=== PATIENT | female | born 1950 | race Caucasian/White ===

== ENCOUNTER 2020-08-20 15:33 | Emergency (ER) | payer MEDICARE, OTHER ==
--- NOTE | 2020-08-20 17:05 | EDM.PDOC ---
ED HPI GENERAL MEDICAL PROBLEM - General Chief Complaint: General Stated Complaint: FATIGUE,WEAKNESS,TROUBLE BREATHING Time Seen by Provider: 08/20/20 15:44 Source of Information: Reports: Patient History Limitations: Reports: No Limitations - History of Present Illness INITIAL COMMENTS - FREE TEXT/NARRATIVE: HISTORY AND PHYSICAL: History of present illness: Patient is a 70-year-old female who presents to the emergency room today with concern of possible COVID-19 infection. Patient states that she has had a cough, nausea, fatigue over the past 4 to 5 days. Patient states that her was diagnosed with Covid approximately 2 weeks ago, so she has been self quarantining at another family members house away from her . Patient denies any other symptoms or concerns or any health history. Patient denies fever, chills, chest pain, shortness of breath. Denies headache, neck stiff ness, change in vision, syncope, or near syncope. Denies vomiting, abdominal pain, diarrhea, constipation, or dysuria. Has not noted any blood in urine or stool. Patient has been eating and drinking appropriately. Review of systems: As per history of present illness and below otherwise all systems reviewed and negative. Past medical history: As per history of present illness and as reviewed below otherwise noncontributory. Surgical history: As per history of present illness and as reviewed below otherwise noncontributory. Social history: See social history for further information Family history: As per history of present illness and as reviewed below otherwise no ncontributory. Physical exam: General: Patient is alert, oriented, and in no acute distress. Patient sitting comfortably on exam table. Vitals stable and reviewed by me. 94-95% on RA. HEENT: Atraumatic, normocephalic, pupils equal and reactive bilaterally, negative for conjunctival pallor or scleral icterus, mucous membranes moist, TMs normal bilaterally, throat clear, neck supple, nontender, trachea midline. No drooling or trismus noted. No meningeal signs. No hot potato voice noted. Lungs: Patient speaking clearly without breathlessness, no wheezing or stridor, no accessory muscle use or respiratory distress. Auscultation deferred due to current COV-ID 19 outbreak. Heart: Auscultation deferred due to current COV-ID 19 outbreak. Abdomen: Soft, nondistended, nontender. Negative for masses or hepatosplenomegaly. Negative for costovertebral tenderness. Pelvis: Stable nontender. Genitourinary: Deferred. Rectal: Deferred. Skin: Intact, warm, dry. No lesions or rashes noted. Extremities: Atraumatic, negative for cords or calf pain. Neurovascular unremarkable. Neuro: Awake, alert, oriented. Cranial nerves II through XII unremarkable. Cerebellum unremarkable. Motor and sensory unremarkable throughout. Exam nonfocal. Notes: Patient 94-95% on RA on my exam and breathing comfortably and in complete sentences. Signs and symptoms that would prompt return to the ED thoroughly discussed with patient. Strict return precautions thoroughly discussed. Covid quarantine instructions given to patient. Discussed the importance of follow-up with a primary care provider following quarantine restrictions. Voices understanding and is agreeable to plan of care. Denies any further questions or concerns at this time. Diagnostics: COVID-19 Therapeutics: None Prescription: None Impression: COVID-19 viral infection Plan: 1. Your COVID-19 screening is positive. That means you do have the coronavirus and are considered contagious. Your vital signs and oxygen saturation are well enough that you were able to monitor your symptoms at home. Continue to monitor for trouble breathing, new confusion or inability to arouse, bluish lips or face or any of the other symptoms we discussed -if this occurs please return to the emergency room.Continue to monitor your health at home for worsening symptoms so that you can be taken care of and treated quickly if needed. 2. Please self quarantine until 10 days have passed since your symptoms began AND you are fever free (<100.4 degrees fahrenheit) for 24 hours without the use of fever-reducing medications AND symptoms are improving. You should restrict activities outside of your home, except for getting medical care. Do not go to work, school, or public areas. Avoid using public transportation, ride-sharing, or taxis. Inform any persons that you have been in contact with since you started becoming symptomatic that you have tested positive; they should be made aware and take the appropriate steps as needed. 3. Take the medications as we prescribed as discussed. You can take NyQuil during the evening to help get a restful night sleep. 4. You may alternate Tylenol and ibuprofen as needed for pain and fever management. 5. The [facility] department will be calling you and following up with you. The [place] COVID 19 Hotline phone number , They are open Tuesday - Tuesday 7am - 7pm. Follow up with your primary care provider for re-evaluation and re-testing after quarantine and discuss when you should be seen. 6. For more specific guidelines regarding isolation/quarantine please visit this website. https://www .health.or.gov/sites/www/files/documents/Files/[facility]/coronavirus/Factsheet_for_Peo ple_With_COVID-19.pdf Definitive disposition and diagnosis as appropriate pending reevaluation and review of above. - Related Data Allergies Allergy/AdvReac Type Severity Reaction Status Date / Time No Known Allergies Allergy Verified 08/20/20 16:24 Home Meds: Home Meds . 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 ED EXAM, GENERAL - Physical Exam Exam: See Below (see dictation) Course - Vital Signs Last Recorded V/S: Last Vital Signs Temp 98.8 F 08/20/20 15:53 Pulse 88 08/20/20 17:05 Resp 16 08/20/20 17:05 BP 122/57 L 08/20/20 17:05 Pulse Ox 94 L 08/20/20 17:05 - Orders/Labs/Meds Orders: Active Orders 24 hr Category Date Time Status CORONAVIRUS COVID-19 PCR [facility] Stat Lab 08/20/20 16:26 Received Labs: Laboratory Tests 08/20/20 Range/Units 16:26 SARS CoV-2 RNA Rapid SOWMYA POSITIVE H (NEGATIVE) Departure - Departure Time of Disposition: 17:05 Disposition: Home, Self-Care 01 Clinical Impression: COVID-19 virus infection - Discharge Information Instructions: COVID-19: How to Protect Yourself and Others - CDC Referrals: PCP,None [Primary Care Provider] - Forms: ED Department Discharge Additional Instructions: The following information is given to patients seen in the emergency department who are being discharged to home. This information is to outline your options for follow-up care. We provide all patients seen in our emergency department with a follow-up referral. The need for follow-up, as well as the timing and circumstances, are variable depending upon the specifics of your emergency department visit. If you don't have a primary care physician on staff, we will provide you with a referral. We always advise you to contact your personal physician following an emergency department visit to inform them of the circumstance of the visit and for follow-up with them and/or the need for any referrals to a consulting specialist. The emergency department will also refer you to a specialist when appropriate. This referral assures that you have the opportunity for follow-up care with a specialist. All of these measure are taken in an effort to provide you with optimal care, which includes your follow-up. Under all circumstances we always encourage you to contact your private physician who remains a resource for coordinating your care. When calling for follow-up care, please make the office aware that this follow-up is from your recent emergency room visit. If for any reason you are refused follow-up, please contact the [facility] at and asked to speak to the emergency department charge nurse. [facility] [address] [place] [address] [place] [address] 1. Your COVID-19 screening is positive. That means you do have the coronavirus and are considered contagious. Your vital signs and oxygen saturation are well enough that you were able to monitor your symptoms at home. Continue to monitor for trouble breathing, new confusion or inability to arouse, bluish lips or face or any of the other symptoms we discussed -if this occurs please return to the emergency room.Continue to monitor your health at home for worsening symptoms so that you can be taken care of and treated quickly if needed. 2. Please self quarantine until 10 days have passed since your symptoms began AND you are fever free (<100.4 degrees fahrenheit) for 24 hours without the use of fever-reducing medications AND symptoms are improving. You should restrict activities outside of your home, except for getting medical care. Do not go to work, school, or public areas. Avoid using public transportation, ride-sharing, or taxis. Inform any persons that you have been in contact with since you started becoming symptomatic that you have tested positive; they should be made aware and take the appropriate steps as needed. 3. Take the medications as we prescribed as discussed. You can take NyQuil during the evening to help get a restful night sleep. 4. You may alternate Tylenol and ibuprofen as needed for pain and fever management. 5. The [facility] department will be calling you and following up with you. The [place] COVID 19 Hotline phone number , They are open Tuesday - Tuesday 7am - 7pm. Follow up with your primary care provider for re-evaluation and re-testing after quarantine and discuss when you should be seen. 6. For more specific guidelines regarding isolation/quarantine please visit this website. https://www.health.or.gov/sites/www/files/documents/ Files/[facility]/coronavirus/Factsheet_for_People_With_COVID-19.pdf Sepsis Event Note (ED) - Evaluation Sepsis Screening Result: No Definite Risk - Focused Exam Vital Signs: Vital Signs Temp Pulse Resp BP Pulse Ox 08/20/20 17:05 88 16 122/57 L 94 L 08/20/20 15:53 98.8 F 86 16 148/65 H 93 L - My Orders Last 24 Hours: My Active Orders 08/20/20 16:26 CORONAVIRUS COVID-19 PCR [facility] Stat - Assessment/Plan Last 24 Hours: My Active Orders 08/20/20 16:26 CORONAVIRUS COVID-19 PCR [facility] Stat
== END 2020-08-20 17:12 | disposition home or self-care (01) ==
LOC: MW.ED 15:33
DX: U07.1 COVID-19 (principal); Z90.710 Acquired absence of both cervix and uterus
CPT/HCPCS: 99283; U0002; 99282

== ENCOUNTER 2020-08-23 10:24 | Emergency (ER) | payer MEDICARE, OTHER ==
[2020-08-23] MEDS ORDERED: Ketorolac 15 MG/ML SDV IVPUSH ONE (10:45)
[2020-08-23] MEDS ORDERED: Dextrose 5%-0.9% NaCl 1,000 ML IV SCH (11:00)
--- NOTE | 2020-08-23 11:15 | CR ---
INDICATION: Dyspnea. COVID-19 diagnosed 3 days ago. TECHNIQUE: AP portable upright chest. FINDINGS: The lungs are clear. Probable mild eventration of the right hemidiaphragm. Blunting of the right costophrenic angle likely by pleural thickening or trace pleural fluid. Normal heart size. Mild degenerative change of the AC joints. IMPRESSION: 1. No evidence for active pneumonia. 2. Pleural thickening or trace pleural fluid at the right lung base. Dictated by Ramiro Rossi MD @ Aug 23 2020 11:13AM Signed by Dr. Ramiro Rossi @ Aug 23 2020 11:14AM
[2020-08-23 11:49] LABS: CARBON DIOXIDE,CO2 24.8 mmol/L (21.0-32.0); POTASSIUM,K 3.9 mmol/L (3.5-5.1)
[2020-08-23] MEDS ORDERED: Iopamidol 755 MG/ML 500 ML Multipack Bottle IVPUSH ONE (12:52)
--- NOTE | 2020-08-23 13:13 | CT ---
HISTORY: Elevated D-dimer. COVID-19. TECHNIQUE: Intravenous contrast enhanced CT of the chest. 100 mL of Isovue-370 intravenous contrast administered. COMPARISON: 03/09/2011. FINDINGS: There is no acute pulmonary embolism. No thoracic aortic aneurysm or dissection. No pericardial effusion. There are areas of ground-glass lung infiltrate bilaterally likely related to COVID-19. There are also some areas of more linear parenchymal opacity which may relate to linear atelectasis or linear parenchymal fibrosis. There is no pneumothorax or pleural effusion. Mild hilar adenopathy may be reactive. Small hiatal hernia. Cholelithiasis. Degenerative changes of the spine. Mild anterior wedging of T3 is unchanged. IMPRESSION: 1. No acute pulmonary embolism. 2. Areas of bilateral ground-glass infiltrate likely related to COVID-19. 3. There are also areas of linear atelectasis or linear scarring. 4. Mild bilateral hilar adenopathy may be reactive. Dictated by Connor Daniel MD @ 08/23/2020 1:12:06 PM Please note that all CT scans at this facility use dose modulation, iterative reconstruction, and/or weight-based dosing when appropriate to reduce radiation dose to as low as reasonably achievable. Dictated by: Connor Daniel MD @ 08/23/2020 13:12:12 (Electronically Signed)
--- NOTE | 2020-08-23 14:08 | EDM.PDOC ---
ED HPI GENERAL MEDICAL PROBLEM - General Chief Complaint: General Stated Complaint: FATIGUE,WEAK Time Seen by Provider: 08/23/20 10:32 - History of Present Illness INITIAL COMMENTS - FREE TEXT/NARRATIVE: CHIEF COMPLAINT(S): Weakness HISTORY OF PRESENT ILLNESS: This is a 70-year-old woman with a recent diagnosis of coronavirus who comes to the emergency department with a chief complaint of weakness. The patient was brought in by her [id number] Adrienne for continued weakness. The patient states that since she was diagnosed and being at home she has not had any energy. She states that she has been unable to eat because she has decreased appetite and has had a couple episodes of nonbloody nonbilious vomiting. She states that she does not have any chest pain or shortness of breath but does have a mild nonproductive cough. She states that she has been taking Tylenol and Motrin at home but did not take any Tylenol this morning. She states that she also has a headache which is off and on which she describes as bifrontal and achy rated 1 out of 10 not associated with any blurry vision, numbness, or tingling. She denies any trouble walking, trouble speaking, trouble swallowing. She denies any prior history of DVT or PE. She denies any lower extremity edema. REVIEW OF SYSTEMS: Constitutional: Positive for weakness. Denies fever, chills. Eyes: Denies eye pain Ears, Nose, Mouth, & Throat: Denies earache Cardiovascular: Denies chest pain Respiratory: Positive for mild nonproductive cough denies shortness of breath Gastrointestinal: Positive for nausea and vomiting. Denies diarrhea, hematochezia, melena, hematemesis, bilious emesis, abdominal pain Genitourinary: Denies hematuria, dysuria Skin:Denies a rash Neurological: Positive for headache. Denies blurred vision, diplopia, numbness, tingling, weakness Psychiatric: Denies depression PAST MEDICAL HISTORY: As per history of present illness and as reviewed below otherwise noncontributory. SURGICAL HISTORY: As per history of present illness and as reviewed below otherwise noncontributory. LMP: Menopausal SOCIAL HISTORY: As per history of present illness and as reviewed below otherwise noncontributory. FAMILY HISTORY: As per history of present illness and as reviewed below otherwise noncontributory. EXAMINATION OF ORGAN SYSTEMS/BODY AREAS: Constitutional: Blood pressure was 143/73, heart rate 104, respiratory rate 16 with an oxygen saturation of 96% on room air. Temperature 37.5 General: Ill-appearing woman who is in no acute distress. Psychiatric: Appropriate mood and affect. Eyes: No scleral icterus or conjunctival erythema ENMT: Mildly dry mucous membranes. No pharyngeal erythema. Cardiovascular: Tachycardic but regular no gallops, murmurs, or rubs. Bilateral upper extremity pulses symmetric and intact. No peripheral edema. No JVD. Respiratory: Lungs clear to auscultation bilaterally. No wheezes, rales, or rhonchi. Patient is speaking in full sentences. Does not appear to be struggling to breathe. Gastrointestinal: Soft, non-tender, non-distended. Normoactive bowel sounds Genitourinary: No suprapubic tenderness Musculoskeletal: Normal range of motion. Skin: No lesions or abrasions. Neurological: Alert, GCS 15 MEDICAL DECISION MAKING AND COURSE IN THE ED WITH INTERPRETATION/REVIEW OF DIAGNOSTIC STUDIES: This is a 70-year-old woman and with a recent diagnosis of coronavirus who comes to the emergency department with fatigue, mild cough, and a mild headache who has tachycardia, is afebrile and appears mildly dehydrated. At this time given her age will obtain a full work-up. Will obtain CBC, CMP, D- dimer, ferritin, and chest x-ray. Will provide judicious fluid bolus with 500 cc bolus of D5 normal saline. Will provide the patient with Toradol IV for pain relief. We will place the patient on cardiac monitoring and pulse oximetry. We did obtain a screening EKG. We did not reveal any signs of ischemia. Twelve-lead EKG interpreted by myself. Normal sinus rhythm at a rate of 94beats per minute. Normal axis. NV interval is 140ms. QRS duration is 88ms. ST segments are normal without elevations or depressions. No Q waves present. Hypertrophy not noted. No prior EKGs in our system. Interpretation: Normal sinus rhythm Laboratory: CBC is unremarkable. D-dimer is elevated at 1.72. CMP reveals hyponatremia at 134, hypochloremia at 97, mild elevation in BUN at 20 and a creatinine of 1.1. Ferritin is elevated 880. There is a mild transaminitis with an AST of 81 and ALT of 99. Hypoalbuminemia at 3.3. The radiological images were viewed by myself along with reading the report from the radiologist. Chest x-ray does not reveal any evidence for active pneumonia. There is pleural thickening or trace pleural fluid at the right lung base. On reevaluation, the patient was feeling better. I did discuss the results with the patient. I discussed with her I like to obtain a CT PE to evaluate for pulmonary embolism. She was amenable to this plan. The radiological images were viewed by myself along with reading the report from the radiologist. CT PE does not reveal any evidence of acute pulmonary embolism. There are areas of groundglass infiltrate likely related to COVID-19. There are also areas of linear atelectasis or linear scarring. There is mild bilateral hilar adenopathy. After imaging I did discuss results with the patient. At this time the patient appeared better and she reported feeling better. I did discuss that at this time I like to do a ambulatory pulse oximetry. She was amenable to this plan. An ambulatory pulse oximetry was obtained and the patient remained between 93 and 97% the whole time. I did discuss with her at this time that I do believe she is stable for discharge. I discussed the importance of using Tylenol and Motrin for fever and pain relief. I discussed the importance of maintaining adequate p.o. hydration. I discussed with her that if she were to have fever despite Tylenol and Motrin administration, a pulse oximetry of 90% or less persistently or she starts to experience worsening shortness of breath she should return to the emergency department. I did contact the patient's vtyoselq-wb-afe who brought her to the emergency department and discussed the results with her. She expressed understanding of the plan and was amenable to discharge also. The patient's [id number] and the patient did not have any further questions. DISPOSITION: Patient was discharged home in stable condition. The patient will follow up with her primary care physician CONDITION: Fair PROCEDURES: None FINAL IMPRESSION(S)/DIAGNOSES: 1. Acute fatigue secondary to COVID 19 2. Acute elevated D dimer secondary to Covid 19 Kofi Schaffer M.D. headache Pain Score (Numeric/FACES): 2 - Related Data Allergies Allergy/AdvReac Type Severity Reaction Status Date / Time No Known Allergies Allergy Verified 08/23/20 10:42 Home Meds: Home Meds . 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: , Other (See Below) Other SURFACE PLATE FINISHER History: hysterectomy - Infectious Disease History Infectious Disease History: Reports: Chicken Pox - Past Surgical History HEENT Surgical History: Reports: Eye Surgery GI Surgical History: Reports: Colonoscopy Social & Family History - Family History Family Medical History: No Pertinent Family History - Tobacco Use Tobacco Use Status *Q: Never Tobacco User - Recreational Drug Use Recreational Drug Use: No ED ROS GENERAL - Review of Systems Review Of Systems: See Below ED EXAM, GENERAL - Physical Exam Exam: See Below Course - Vital Signs Last Recorded V/S: Last Vital Signs Temp 37.5 C 08/23/20 10:44 Pulse 81 08/23/20 13:07 Resp 16 08/23/20 10:44 BP 112/39 L 08/23/20 13:07 Pulse Ox 93 L 08/23/20 13:07 - Orders/Labs/Meds Labs: Laboratory Tests 08/23/20 08/23/20 08/23/20 Range/Units 11:05 11:05 11:05 WBC 7.28 (4.0-11.0) K/uL RBC 4.93 (4.30-5.90) M/uL Hgb 15.2 (12.0-16.0) g/dL Hct 45.6 (36.0-46.0) % MCV 92.5 (80.0-98.0) fL MCH 30.8 (27.0-32.0) pg MCHC 33.3 (31.0-37.0) g/dL RDW Std Deviation 45.0 (28.0-62.0) fl RDW Coeff of Sue 13 (11.0-15.0) % Plt Count 165 (150-400) K/uL MPV 11.20 (7.40-12.00) fL Neut % (Auto) 86.8 H (48.0-80.0) % Lymph % (Auto) 8.7 L (16.0-40.0) % Carlisle % (Auto) 4.4 (0.0-15.0) % Eos % (Auto) 0.0 (0.0-7.0) % Baso % (Auto) 0.1 (0.0-1.5) % Neut # (Auto) 6.3 H (1.4-5.7) K/uL Lymph # (Auto) 0.6 (0.6-2.4) K/uL Carlisle # (Auto) 0.3 (0.0-0.8) K/uL Eos # (Auto) 0.0 (0.0-0.7) K/uL Baso # (Auto) 0.0 (0.0-0.1) K/uL Nucleated RBC % 0.0 /100WBC Nucleated RBCs # 0 K/uL D-Dimer, Quantitative 1.72 H (0.0-0.50) mg/L FEU Sodium 134 L (136-145) mmol/L Potassium 3.9 (3.5-5.1) mmol/L Chloride 97 L (98-107) mmol/L Carbon Dioxide 24.8 (21.0-32.0) mmol/L BUN 20 H (7.0-18.0) mg/dL Creatinine 1.1 H (0.6-1.0) mg/dL Est Cr Clr Drug Dosing 39.92 mL/min Estimated GFR (MDRD) 48.8 ml/min Glucose 111 H (74-106) mg/dL Calcium 8.5 (8.5-10.1) mg/dL Ferritin (8-252) ng/mL Total Bilirubin 0.6 (0.2-1.0) mg/dL AST 81 H (15-37) IU/L ALT 99 H (14-63) IU/L Alkaline Phosphatase 67 (46-116) U/L Total Protein 7.7 (6.4-8.2) g/dL Albumin 3.3 L (3.4-5.0) g/dL Globulin 4.4 H (2.6-4.0) g/dL Albumin/Globulin Ratio 0.8 L (0.9-1.6) 08/23/20 Range/Units 11:05 WBC (4.0-11.0) K/uL RBC (4.30-5.90) M/uL Hgb (12.0-16.0) g/dL Hct (36.0-46.0) % MCV (80.0-98.0) fL MCH (27.0-32.0) pg MCHC (31.0-37.0) g/dL RDW Std Deviation (28.0-62.0) fl RDW Coeff of Sue (11.0-15.0) % Plt Count (150-400) K/uL MPV (7.40-12.00) fL Neut % (Auto) (48.0-80.0) % Lymph % (Auto) (16.0-40.0) % Carlisle % (Auto) (0.0-15.0) % Eos % (Auto) (0.0-7.0) % Baso % (Auto) (0.0-1.5) % Neut # (Auto) (1.4-5.7) K/uL Lymph # (Auto) (0.6-2.4) K/uL Carlisle # (Auto) (0.0-0.8) K/uL Eos # (Auto) (0.0-0.7) K/uL Baso # (Auto) (0.0-0.1) K/uL Nucleated RBC % /100WBC Nucleated RBCs # K/uL D-Dimer, Quantitative (0.0-0.50) mg/L FEU Sodium (136-145) mmol/L Potassium (3.5-5.1) mmol/L Chloride (98-107) mmol/L Carbon Dioxide (21.0-32.0) mmol/L BUN (7.0-18.0) mg/dL Creatinine (0.6-1.0) mg/dL Est Cr Clr Drug Dosing mL/min Estimated GFR (MDRD) ml/min Glucose (74-106) mg/dL Calcium (8.5-10.1) mg/dL Ferritin 880 H (8-252) ng/mL Total Bilirubin (0.2-1.0) mg/dL AST (15-37) IU/L ALT (14-63) IU/L Alkaline Phosphatase (46-116) U/L Total Protein (6.4-8.2) g/dL Albumin (3.4-5.0) g/dL Globulin (2.6-4.0) g/dL Albumin/Globulin Ratio (0.9-1.6) Meds: Medications Discontinued Medications Generic Name Dose Route Start Last Admin Trade Name Freq PRN Reason Stop Dose Admin Dextrose/Sodium Chloride 1,000 mls @ 500 mls/hr 11/28/20 11:00 08/23/20 12:09 Dextrose 5%-Normal Saline IV 500 mls/hr ASDIRECTED ALAINA Administration Iopamidol 100 ml 08/23/20 12:52 08/23/20 12:53 Isovue Multipack-370 (76%) IVPUSH 08/23/20 12:53 100 ml ONETIME ONE Administration Ketorolac Tromethamine 15 mg 08/23/20 10:45 08/23/20 11:17 Toradol IVPUSH 08/23/20 10:46 15 mg ONETIME ONE Administration Departure - Departure Time of Disposition: 14:06 Disposition: Home, Self-Care 01 Condition: Fair Clinical Impression: COVID-19 virus infection - Discharge Information *PRESCRIPTION DRUG MONITORING PROGRAM REVIEWED*: No *COPY OF PRESCRIPTION DRUG MONITORING REPORT IN PATIENT JEAN MARIE: No Instructions: COVID-19 Frequently Asked Questions, COVID-19: How to Protect Yourself and Others - [facility], Prevent the Spread of COVID-19 if You Are Sick - [facility] Referrals: Saemer Way MD [Primary Care Provider] - Forms: ED Department Discharge Additional Instructions: The patient is informed of any results of their evaluation and diagnostic workup and all questions are answered. They are given discharge instructions and return precautions. The patient is stable for discharge. The patient states they understand and agree with the plan and that they will return if their symptoms get worse or if they have any new concerns. The following information is given to patients seen in the emergency department who are being discharged to home. This information is to outline your options for follow-up care. We provide all patients seen in our emergency department with a follow-up referral. The need for follow-up, as well as the timing and circumstances, are variable depending upon the specifics of your emergency department visit. If you don't have a primary care physician on staff, we will provide you with a referral. We always advise you to contact your personal physician following an emergency department visit to inform them of the circumstance of the visit and for follow-up with them and/or the need for any referrals to a consulting specialist. The emergency department will also refer you to a specialist when appropriate. This referral assures that you have the opportunity for follow-up care with a specialist. All of these measure are taken in an effort to provide you with optimal care, which includes your follow-up. Under all circumstances we always encourage you to contact your private physician who remains a resource for coordinating your care. When calling for follow-up care, please make the office aware that this follow-up is from your recent emergency room visit. If for any reason you are refused follow-up, please contact the [facility] Emergency Department at and asked to speak to the emergency department charge nurse. You were evaluated today on an emergent basis. At this time your work-up was normal except for identifying COVID-[address] During your stay in the emergency department your oxygen saturation was 93 to 94% even with walking. I recommend taking Tylenol and Motrin for fever and headache. In addition it is important to maintain hydration with either Gatorade, Pedialyte, soups. Please continue to take your home medications as prescribed. If you have worsening symptoms such as worsening shortness of breath, development of chest pain, fever despite Tylenol or Motrin administration, or have a persistent oxygen saturation 90% or less please return to the emergency department. Please follow-up with your primary care physician within 2 to 3 days. [facility] - Primary Care [address] [place] [address] [place] [address] Sepsis Event Note (ED) - Evaluation Sepsis Screening Result: No Definite Risk - Focused Exam Vital Signs: Vital Signs Temp Pulse Resp BP Pulse Ox 08/23/20 13:07 81 112/39 L 93 L 08/23/20 12:07 95 123/56 L 93 L 08/23/20 11:37 94 133/64 94 L 08/23/20 11:07 96 147/61 H 95 08/23/20 10:44 37.5 C 104 H 16 143/73 H 96
== END 2020-08-23 14:23 | disposition home or self-care (01) ==
LOC: MW.ED 10:24
DX: U07.1 COVID-19 (principal); R79.1 Abnormal coagulation profile; R00.0 Tachycardia, unspecified
CPT/HCPCS: 36415; 71045; 71275; 80053; 82728; 85025; 85379; 93005; 96374; 99285; J1885; J7042; Q9967; 99283

== ENCOUNTER 2020-08-25 10:24 | Inpatient (IN) | payer MEDICARE, OTHER ==
--- NOTE | 2020-08-25 10:34 | EDM.PDOC ---
ED HPI GENERAL MEDICAL PROBLEM - General Chief Complaint: Respiratory Problem Stated Complaint: COVID COMPLICATIONS Time Seen by Provider: 08/25/20 10:31 Source of Information: Reports: Patient, Family, Old Records History Limitations: Reports: Altered Mental Status - History of Present Illness INITIAL COMMENTS - FREE TEXT/NARRATIVE: This is a very pleasant 70-year-old female with a past medical history of hypertension and rheumatoid arthritis on hydroxychloroquine presenting with shortness of breath, fatigue, disorientation, and fever. Patient was seen in the ED on 08/20 with complaints of cough, nausea, and fatigue. She tested positive for COVID-19 on 1124 through the rapid test in the stay PCR test. She was able to discharge home. She presented back to the emergency department on 08/23 with complaints of weakness and fatigue along with some vomiting and a headache. She was given IV fluids and some ketorolac. She underwent a CT pulmonary angiogram that did not show pulmonary embolism but did show groundglass opacities. Today she presents back to the emergency department her daughter with complaints of worsening shortness of breath, worsening fatigue, and disorientation. The daughter is a nurse practitioner and noted that the patient was tachypneic with respiratory rates above 40 at home. She also had a fever at home to 102.9 F today. She reports several episodes of nonbloody emesis and nonbloody diarrhea along with decreased oral intake of food and fluids. She states that she was disoriented earlier, she did not know what year it was or who was the vice president business & corporate development. She is concerned that her mother symptoms are worsening so she brought her to the emergency department for further evaluation. When I evaluate the patient, she denies any complaints of pain including headache, neck pain, chest pain, or abdominal pain. She denies any hemoptysis. No known sick contacts at home. She complains of feeling tired and mildly short of breath. ROS: A 10-point review of systems was negative, except as noted in the HPI (or in the ROS section of this note). Past medical history: Reviewed, no additional pertinent history. Surgical history: Reviewed in system, no additional pertinent history. Social history: Reviewed in system, no additional pertinent history. Family history: Reviewed in system, no additional pertinent history. PHYSICAL EXAM Vital signs reviewed. Nursing notes reviewed. Constitutional: Awake, alert, appears fatigued. Head: Normocephalic, atraumatic. Eyes: EOMI, conjunctiva normal, no discharge, no scleral icterus. Ears, Nose, Throat: External ears and nose normal, moist oral mucosa. Cardiovascular: 2+ radial pulses bilaterally, capillary refill less than 2 seconds. No lower extremity edema. Pulmonary: CTA BL, tachypneic, mildly increased work of breathing, no accessory muscle use. Abdomen/GI: Soft, nontender, nondistended, no guarding or rigidity, no masses. Musculoskeletal: No deformities. Integumentary: Appropriate color for ethnicity, warm, dry, no pallor or jaundice, no rash. Neurologic: Alert, answering questions appropriately, normal speech, no facial droop, moving all extremities well. Psychiatric: Appropriate mood and affect, normal thought process. This patient was seen and evaluated during the 2019 SARS-CoV-2 novel coronavirus pandemic period. Community viral transmission is ongoing at time of this encounter and the emergency department is operating under pandemic response procedures. - Related Data Allergies Allergy/AdvReac Type Severity Reaction Status Date / Time No Known Allergies Allergy Verified 08/25/20 10:43 Home Meds: Home Meds . [Unable To Obtain] 1 each 08/20/20 [History] Past Medical History Gastrointestinal History: Reports: Colon Polyp CROP RANCH HAND History: Reports: , Other (See Below) Other CROP RANCH HAND History: hysterectomy - Infectious Disease History Infectious Disease History: Reports: Chicken Pox - Past Surgical History HEENT Surgical History: Reports: Eye Surgery GI Surgical History: Reports: Colonoscopy Social & Family History - Family History Family Medical History: No Pertinent Family History ED ROS GENERAL - Review of Systems Review Of Systems: See Below ED EXAM, GENERAL - Physical Exam Exam: See Below #1 Interpretation EKG Interpretation Comments: 12-Lead ECG Interpretation Acquired: 10:43 AM Rhythm: Sinus rhythm Rate: 97 bpm Foley: Normal Intervals: Normal Ectopy: None RV Strain: No obvious RV strain pattern. ST Segments/T-Waves: Biphasic T waves in lead III, otherwise no notable changes Acute Ischemic Changes: None apparent Interpretation: No STEMI Course - Vital Signs Text/Narrative:: 70-year-old female presenting with shortness of breath, fatigue, fever, diarrhea, and decreased oral intake Differential diagnosis includes but is not limited to: COVID-19, sepsis, bacterial pneumonia, bacteremia, UTI, pyelonephritis, intra-abdominal infection, anemia, electrolyte disturbance, arrhythmia, and many others. CBC shows normal cell lines. INR is 1.10, D-dimer elevated at 2.14. Normal lactate. Metabolic panel shows mild hyponatremia at 133, creatinine 1.1, normal GFR. Glucose 122, AST 107, ALT 102, negative troponin. Lipase is within normal limits. Urinalysis has small ketones and small occult blood but no evidence of infection. Chest x-ray showed bibasilar interstitial type opacities suspicious for COVID-[address] pulmonary angiogram shows no evidence of pulmonary embolism, did note patchy groundglass opacities slightly worsened likely related to Covid lung disease along with bibasilar consolidation. Head CT shows no acute findings. Patient will need to be admitted to the hospital for increased work of breathing with resting tachypnea with respiratory rates as high as 40. She was placed on low flow nasal cannula oxygen at 2 L/min. Ordered IV dexamethasone. Dr. Phelps states that she will order the remdesivir. Patient will need to be admitted to the hospital for ongoing work-up and treatment. Discussed with the admitting hospitalist Dr. Phelps who agrees to admit to inpatient status. Transferred to the medical surgical unit in good condition. Last Recorded V/S: Last Vital Signs Temp 37.9 C 08/25/20 14:55 Pulse 83 08/25/20 14:55 Resp 24 H 08/25/20 14:55 BP 117/47 L 08/25/20 14:55 Pulse Ox 95 08/25/20 14:55 - Orders/Labs/Meds Orders: Active Orders 24 hr Category Date Time Status Cardiac Monitoring [RC] CONTINUOUS Care 08/25/20 10:55 Active EKG Documentation Completion [RC] STAT Care 08/25/20 10:54 Active Overnight Pulse Oximetry [RC] Click to Edit Care 08/25/20 10:55 Active Oxygen Therapy, ED [RC] ASDIRECTED Care 08/25/20 13:41 Active CULTURE BLOOD [BC] Stat Lab 08/25/20 11:50 Received CULTURE BLOOD [BC] Stat Lab 08/25/20 12:25 Results Levofloxacin/Dextrose 5%-Water [Levaquin in D5W 750 MG/ Med 08/25/20 14:32 Active 150 ML] 750 mg Premix Bag 1 bag IV ONETIME Sodium Chloride 0.9% [Saline Flush] Med 08/25/20 10:54 Active 10 ml FLUSH ASDIRECTED PRN Sodium Chloride 0.9% [Saline Flush] Med 08/25/20 10:54 Active 2.5 ml FLUSH ASDIRECTED PRN Blood Culture x2 Reflex Set [OM.PC] Stat Oth 08/25/20 10:54 Ordered Pulse Oximetry Continuous Monitoring [OM.PC] Routine Oth 08/25/20 10:54 Ordered Saline Lock Insert [OM.PC] Stat Oth 08/25/20 10:54 Ordered Severe Sepsis Onset Time [OM.PC] Stat Oth 08/25/20 10:54 Ordered Medication Orders Levofloxacin/Dextrose 750 mg/ (Premix) 150 mls @ 100 mls/hr IV ONETIME ONE Stop: 08/25/20 16:01 Last Admin: 08/25/20 14:52 Dose: 100 mls/hr Documented by: MURDNIC Sodium Chloride (Saline Flush) 10 ml FLUSH ASDIRECTED PRN PRN Reason: Keep Vein Open Last Admin: 08/25/20 11:55 Dose: 10 ml Documented by: MURDNIC Sodium Chloride (Saline Flush) 2.5 ml FLUSH ASDIRECTED PRN PRN Reason: Keep Vein Open Last Admin: 08/25/20 11:56 Dose: 2.5 ml Documented by: MURDNIC Labs: Laboratory Tests 08/25/20 08/25/20 08/25/20 Range/Units 11:50 11:50 11:50 WBC 8.63 (4.0-11.0) K/uL RBC 4.73 (4.30-5.90) M/uL Hgb 14.3 (12.0-16.0) g/dL Hct 43.4 (36.0-46.0) % MCV 91.8 (80.0-98.0) fL MCH 30.2 (27.0-32.0) pg MCHC 32.9 (31.0-37.0) g/dL RDW Std Deviation 46.2 (28.0-62.0) fl RDW Coeff of Sue 14 (11.0-15.0) % Plt Count 215 (150-400) K/uL MPV 10.70 (7.40-12.00) fL Neut % (Auto) 90.7 H (48.0-80.0) % Lymph % (Auto) 6.4 L (16.0-40.0) % [place] % (Auto) 2.9 (0.0-15.0) % Eos % (Auto) 0.0 (0.0-7.0) % Baso % (Auto) 0.0 (0.0-1.5) % Neut # (Auto) 7.8 H (1.4-5.7) K/uL Lymph # (Auto) 0.6 (0.6-2.4) K/uL [place] # (Auto) 0.3 (0.0-0.8) K/uL Eos # (Auto) 0.0 (0.0-0.7) K/uL Baso # (Auto) 0.0 (0.0-0.1) K/uL Nucleated RBC % 0.0 /100WBC Nucleated RBCs # 0 K/uL INR 1.10 D-Dimer, Quantitative (0.0-0.50) mg/L FEU Lactate 1.4 (0.20-2.00) mmol/L Sodium (136-145) mmol/L Potassium (3.5-5.1) mmol/L Chloride (98-107) mmol/L Carbon Dioxide (21.0-32.0) mmol/L BUN (7.0-18.0) mg/dL Creatinine (0.6-1.0) mg/dL Est Cr Clr Drug Dosing mL/min Estimated GFR (MDRD) ml/min Glucose (74-106) mg/dL Calcium (8.5-10.1) mg/dL Total Bilirubin (0.2-1.0) mg/dL AST (15-37) IU/L ALT (14-63) IU/L Alkaline Phosphatase (46-116) U/L Troponin I (0.000-0.056) ng/mL Total Protein (6.4-8.2) g/dL Albumin (3.4-5.0) g/dL Globulin (2.6-4.0) g/dL Albumin/Globulin Ratio (0.9-1.6) Lipase (73-393) U/L Urine Color Urine Appearance Urine pH (5.0-8.0) Ur Specific [place] (1.001-1.035) Urine Protein (NEGATIVE) mg/dL Urine Glucose (UA) (NEGATIVE) mg/dL Urine Ketones (NEGATIVE) mg/dL Urine Occult Blood (NEGATIVE) Urine Nitrite (NEGATIVE) Urine Bilirubin (NEGATIVE) Urine Ictotest Urine Urobilinogen (<2.0) EU/dL Ur Leukocyte Esterase (NEGATIVE) U Hyaline Cast (Auto) (0-2/LPF) Urine RBC (0-2/HPF) Urine WBC (0-5/HPF) Ur Epithelial Cells (NONE-FEW) Amorphous Sediment (NEGATIVE) Urine Bacteria (NEGATIVE) Fine Granular Casts (NEGATIVE) Urine Mucus (NONE-MOD) 08/25/20 08/25/20 08/25/20 Range/Units 11:50 11:50 12:10 WBC (4.0-11.0) K/uL RBC (4.30-5.90) M/uL Hgb (12.0-16.0) g/dL Hct (36.0-46.0) % MCV (80.0-98.0) fL MCH (27.0-32.0) pg MCHC (31.0-37.0) g/dL RDW Std Deviation (28.0-62.0) fl RDW Coeff of Sue (11.0-15.0) % Plt Count (150-400) K/uL MPV (7.40-12.00) fL Neut % (Auto) (48.0-80.0) % Lymph % (Auto) (16.0-40.0) % [place] % (Auto) (0.0-15.0) % Eos % (Auto) (0.0-7.0) % Baso % (Auto) (0.0-1.5) % Neut # (Auto) (1.4-5.7) K/uL Lymph # (Auto) (0.6-2.4) K/uL [place] # (Auto) (0.0-0.8) K/uL Eos # (Auto) (0.0-0.7) K/uL Baso # (Auto) (0.0-0.1) K/uL Nucleated RBC % /100WBC Nucleated RBCs # K/uL INR D-Dimer, Quantitative 2.14 H (0.0-0.50) mg/L FEU Lactate (0.20-2.00) mmol/L Sodium 133 L (136-145) mmol/L Potassium 3.8 (3.5-5.1) mmol/L Chloride 99 (98-107) mmol/L Carbon Dioxide 25.9 (21.0-32.0) mmol/L BUN 20 H (7.0-18.0) mg/dL Creatinine 1.1 H (0.6-1.0) mg/dL Est Cr Clr Drug Dosing 36.56 mL/min Estimated GFR (MDRD) 48.8 ml/min Glucose 122 H (74-106) mg/dL Calcium 8.5 (8.5-10.1) mg/dL Total Bilirubin 0.6 (0.2-1.0) mg/dL AST 107 H (15-37) IU/L ALT 102 H (14-63) IU/L Alkaline Phosphatase 60 (46-116) U/L Troponin I < 0.050 (0.000-0.056) ng/mL Total Protein 7.2 (6.4-8.2) g/dL Albumin 2.8 L (3.4-5.0) g/dL Globulin 4.4 H (2.6-4.0) g/dL Albumin/Globulin Ratio 0.6 L (0.9-1.6) Lipase 119 (73-393) U/L Urine Color DARK YELLOW Urine Appearance SLT CLOUDY Urine pH 6.0 (5.0-8.0) Ur Specific [place] >= 1.030 (1.001-1.035) Urine Protein 100 H (NEGATIVE) mg/dL Urine Glucose (UA) NEGATIVE (NEGATIVE) mg/dL Urine Ketones 15 H (NEGATIVE) mg/dL Urine Occult Blood SMALL H (NEGATIVE) Urine Nitrite NEGATIVE (NEGATIVE) Urine Bilirubin SMALL H (NEGATIVE) Urine Ictotest NEGATIVE Urine Urobilinogen 0.2 (<2.0) EU/dL Ur Leukocyte Esterase NEGATIVE (NEGATIVE) U Hyaline Cast (Auto) 0-2 (0-2/LPF) Urine RBC 0-2 (0-2/HPF) Urine WBC 0-2 (0-5/HPF) Ur Epithelial Cells OCCASIONAL (NONE-FEW) Amorphous Sediment MODERATE (NEGATIVE) Urine Bacteria FEW (NEGATIVE) Fine Granular Casts 0-3 (NEGATIVE) Urine Mucus MODERATE (NONE-MOD) Meds: Medications Generic Name Dose Route Start Last Admin Trade Name Freq PRN Reason Stop Dose Admin Levofloxacin/Dextrose 750 mg/ 150 mls @ 100 mls/hr 08/25/20 14:32 08/25/20 14:52 Premix IV 08/25/20 16:01 100 mls/hr ONETIME ONE Administration Sodium Chloride 10 ml 08/25/20 10:54 08/25/20 11:55 Saline Flush FLUSH 10 ml ASDIRECTED PRN Administration Keep Vein Open Sodium Chloride 2.5 ml 08/25/20 10:54 08/25/20 11:56 Saline Flush FLUSH 2.5 ml ASDIRECTED PRN Administration Keep Vein Open Discontinued Medications Generic Name Dose Route Start Last Admin Trade Name Tungq PRN Reason Stop Dose Admin Acetaminophen 650 mg 08/25/20 12:06 08/25/20 12:31 Tylenol RECTAL 08/25/20 12:07 650 mg NOW ONE Administration Dexamethasone 6 mg 08/25/20 15:44 Decadron IVPUSH 08/25/20 15:45 ONETIME ONE Lactated Ringer's 1,000 mls @ 999 mls/hr 08/25/20 10:55 08/25/20 11:55 Ringers, Lactated IV 08/25/20 11:55 999 mls/hr .BOLUS ONE Administration Departure - Departure Time of Disposition: 15:53 Disposition: Home, Self-Care 01 Condition: Good Clinical Impression: COVID-19 virus infection, Respiratory distress, Sepsis due to undetermined organism - Discharge Information Sepsis Event Note (ED) - Focused Exam Vital Signs: Vital Signs Temp Temp Pulse Resp BP Pulse Ox 08/25/20 14:55 37.9 C 83 24 H 117/47 L 95 08/25/20 13:40 92 28 H 126/50 L 96 08/25/20 13:01 37.9 C 08/25/20 13:00 87 21 H 124/44 L 96 08/25/20 12:31 38.7 C H 08/25/20 11:58 88 30 H 134/50 L 98 08/25/20 10:39 37.4 C 102 H 26 H 128/65 92 L - My Orders Last 24 Hours: My Active Orders 08/25/20 10:54 EKG Documentation Completion [RC] STAT Sodium Chloride 0.9% [Saline Flush] 10 ml FLUSH ASDIRECTED PRN Sodium Chloride 0.9% [Saline Flush] 2.5 ml FLUSH ASDIRECTED PRN Blood Culture x2 Reflex Set [OM.PC] Stat Pulse Oximetry Continuous Monitoring [OM.PC] Routine Saline Lock Insert [OM.PC] Stat Severe Sepsis Onset Time [OM.PC] Stat 08/25/20 10:55 Cardiac Monitoring [RC] CONTINUOUS Overnight Pulse Oximetry [RC] Click to Edit 08/25/20 11:50 CULTURE BLOOD [BC] Stat 08/25/20 12:25 CULTURE BLOOD [BC] Stat 08/25/20 13:41 Oxygen Therapy, ED [RC] ASDIRECTED 08/25/20 14:32 Levofloxacin/Dextrose 5%-Water [Levaquin in D5W 750 MG/150 ML] 750 mg Premix Bag 1 bag IV ONETIME - Assessment/Plan Last 24 Hours: My Active Orders 08/25/20 10:54 EKG Documentation Completion [RC] STAT Sodium Chloride 0.9% [Saline Flush] 10 ml FLUSH ASDIRECTED PRN Sodium Chloride 0.9% [Saline Flush] 2.5 ml FLUSH ASDIRECTED PRN Blood Culture x2 Reflex Set [OM.PC] Stat Pulse Oximetry Continuous Monitoring [OM.PC] Routine Saline Lock Insert [OM.PC] Stat Severe Sepsis Onset Time [OM.PC] Stat 08/25/20 10:55 Cardiac Monitoring [RC] CONTINUOUS Overnight Pulse Oximetry [RC] Click to Edit 08/25/20 11:50 CULTURE BLOOD [BC] Stat 08/25/20 12:25 CULTURE BLOOD [BC] Stat 08/25/20 13:41 Oxygen Therapy, ED [RC] ASDIRECTED 08/25/20 14:32 Levofloxacin/Dextrose 5%-Water [Levaquin in D5W 750 MG/150 ML] 750 mg Premix Bag 1 bag IV ONETIME
[2020-08-25] MEDS ORDERED: Sodium Chloride 0.9% 10 ML Syringe FLUSH PRN (10:54)
[2020-08-25] MEDS ORDERED: Sodium Chloride 0.9% 2.5 ML Syringe FLUSH PRN ×2 (10:54→15:53)
[2020-08-25] MEDS ORDERED: Lactated Ringers 1,000 ML IV ONE (10:55)
[2020-08-25] MEDS ORDERED: Acetaminophen 650 MG Supp RECTAL ONE (12:06)
[2020-08-25 12:40] LABS: BLOOD UREA NITROGEN,BUN 20 mg/dL (7.0-18.0); CARBON DIOXIDE,CO2 25.9 mmol/L (21.0-32.0); CHLORIDE,CL 99 mmol/L (98-107); GLUCOSE RANDOM 122 mg/dL (74-106); LIPASE 119 U/L (73-393); POTASSIUM,K 3.8 mmol/L (3.5-5.1); SODIUM,NA 133 mmol/L (136-145)
[2020-08-25] MEDS ORDERED: Levofloxacin/Dextrose 5%-Water 750 MG in Premix Bag 1 BAG IV ONE (14:32)
--- NOTE | 2020-08-25 14:53 | CT ---
INDICATION: Tachypnea. Dyspnea. Elevated D-dimer. COMPARISON: August 23, 2020 TECHNIQUE: : CT examination of the chest was performed with the uneventful intravenous administration of 75 cc of Isovue 370 while thin axial sections were obtained from above the apices of the lungs to the lung bases. Please note that all CT scans at this facility use dose modulation, iterative reconstruction, and/or weight-based dosing when appropriate to reduce radiation dose to as low as reasonably achievable. FINDINGS: : HEART and MEDIASTINUM: Heart size normal. Prominent mediastinal lymph nodes likely reactive. No significant pericardial fluid PULMONARY ARTERIAL CIRCULATION: There is no visible intraluminal filling defect to suggest pulmonary embolus. LUNGS: Patchy ground-glass opacities are noted which have slightly worsened. There is consolidation at the bases which has clearly worsened. No pleural effusion or pneumothorax. The findings are likely related to COVID related lung disease though the basilar findings could be due to atelectasis, aspiration or pneumonia unrelated to COVID. PLEURAL SPACES: There is no pleural effusion, pneumothorax or pleural based mass. VISUALIZED UPPER ABDOMEN: Marginal visualization of cholelithiasis. Otherwise, the limited visualized upper abdominal structures appear normal. OSSEOUS STRUCTURES: Age-appropriate appearance. No acute fracture or destructive process. TUBES and LINES: None. IMPRESSION: 1. There is no evidence of pulmonary embolus. 2. Prominent mediastinal lymph nodes unchanged likely reactive. 3. Patchy ground-glass opacities have slightly worsened probably related to COVID related lung disease. Bibasilar consolidation has moderately worsened and is probably related COVID related lung disease. However, the basilar findings could also represent a separate process such as atelectasis, aspiration or bacterial pneumonia. Please note that all CT scans at this facility use dose modulation, iterative reconstruction, and/or weight-based dosing when appropriate to reduce radiation dose to as low as reasonably achievable. Dictated by Cedrick Hernandez MD @ Aug 25 2020 2:43PM Signed by Dr. Cedrick Hernandez @ Aug 25 2020 2:51PM
--- NOTE | 2020-08-25 14:55 | CT ---
INDICATION: Altered mental status COMPARISON: None TECHNIQUE: CT examination of the head was performed as axial sections without intravenous contrast. Images were obtained from the vertex of the skull through the skull base. Please note that all CT scans at this facility use dose modulation, iterative reconstruction, and/or weight-based dosing when appropriate to reduce radiation dose to as low as reasonably achievable. FINDINGS: The brain shows no sign of mass lesion, mass effect, hemorrhage, or edema. There are involutional changes. There is minimal cortical atrophy and there is minimal white matter disease. There is no hydrocephalus. The visualized portions of the orbits are normal in appearance. The osseous structures are normal in appearance with no sign of abnormality in the skull base or calvarium. IMPRESSION: Age-appropriate involutional changes. No acute focal finding. Please note that all CT scans at this facility use dose modulation, iterative reconstruction, and/or weight-based dosing when appropriate to reduce radiation dose to as low as reasonably achievable. Dictated by Cedrick Hernandez MD @ Aug 25 2020 2:51PM Signed by Dr. Cedrick Hernandez @ Aug 25 2020 2:53PM
--- NOTE | 2020-08-25 15:10 | CR ---
HISTORY: Fever. Fatigue. Sepsis. COVID. COMPARISON: CT of the chest, 08/25/2020. TECHNIQUE: Chest, 2 views. FINDINGS: Bibasilar interstitial type opacities, which are suspicious for COVID-19 pneumonia. This is better assessed on the CT of the chest of the same date. The heart size and pulmonary vasculature are within normal limits. There is no pneumothorax. The central airway is normal. The osseous structures are intact. IMPRESSION: Pulmonary findings are typical for COVID-19 pneumonia. Dictated by Jacques Cordero MD @ Aug 25 2020 3:07PM Signed by Dr. Jacques Cordero @ Aug 25 2020 3:09PM
[2020-08-25] MEDS ORDERED: Dexamethasone 10 MG/ML SDV IVPUSH ONE (15:44)
[2020-08-25] MEDS ORDERED: REMDESIVIR 200 MG in Sodium Chloride 0.9% 250 ML IV ONE ×2 (15:50→17:00)
--- NOTE | 2020-08-25 15:50 | PCM.HP.2 ---
H&P History of Present Illness - General Date of Service: 08/25/20 Admit Problem/Dx: Admission Diagnosis/Problem Admission Diagnosis/Problem Respiratory distress Source of Information: Patient History Limitations: Reports: No Limitations - History of Present Illness Initial Comments - Free Text/Narative: This 70-year-old female with PMH of HTN and RA on hydroxychloroquine presented to the ER with shortness of breath fatigue disorientation and fever. She was diagnosed with Covid 19 on 08/20 and has been to the ER multiple times for worsening fatigue as well as shortness of breath. Her daughter in law who is a nurse practitioner woke her up this morning and felt she was quite disoriented and noted that her respirations were significantly elevated in the 40s. She br ought her for further evaluation. K complains of fever, myalgias and extreme fatigue. Along with nonproductive cough. She denies any dyspnea but appears to be short of breath. She reports that she has been nauseated with any pills. But has been taking water okay. Reports that appetite has been fairly poor. She reports that she had a fever of 102.9 today at home. Reports having some nonbloody emesis and diarrhea. Since arriving in the ER she has become oriented and is much more alert. She has no known sick contacts at home. Denies any chest pain or palpitations. No abdominal pain. No dysuria or other urinary concerns. Denies any history of CAD, DM type II. She denies any recreational drug use, no tobacco use, and no alcohol use. In the ER white count noted at 8000 hemoglobin 14.3, platelet 215,000. 90% neutrophils. D-dimer elevated at 2.14 lactic acid 1.4 sodium noted at 133 BUN 20 creatinine 1.1. AST and ALT mildly elevated at 107 and 102 respectively UA negative blood cultures obtained. Head CT obtained which shows no acute intracranial process. CTA of the chest prominent mediastinal lymph nodes patchy ground glass opacities slightly alert worsened from previous CT on 08/23. Bibasilar consolidation has moderately worsened. In the ER she was given dexam ethasone 6 mg IV along with Levaquin 750 mg. She was noted to be febrile tachycardic and hypoxic on arrival to the ER. She was treated with 1 L LR as well as Tylenol. She will be admitted inpatient for COVID-19 pneumonia acute hypoxic respiratory failure and CAP. Discussed treatment in depth with [id number]. - Related Data Allergies/Adverse Reactions: Allergies Allergy/AdvReac Type Severity Reaction Status Date / Time No Known Allergies Allergy Verified 08/25/20 10:43 Home Medications: Home Meds . [Unable To Obtain] 1 each 08/20/20 [History] Past Medical History Cardiovascular History: Reports: Hypertension. Denies: Afib, Blood Clots/VTE/DVT, CAD Respiratory History: Reports: None. Denies: COPD, SOB Gastrointestinal History: Reports: Colon Polyp. Denies: GERD, GI Bleed REAMER HAND History: Reports: , Other (See Below) Other OB/BYN History: hysterectomy Musculoskeletal History: Reports: None Neurological History: Reports: None Endocrine/Metabolic History: Reports: None. Denies: Diabetes, Type II - Infectious Disease History Infectious Disease History: Reports: Chicken Pox, Novel Coronavirus - Past Surgical History HEENT Surgical History: Reports: Eye Surgery GI Surgical History: Reports: Colonoscopy Social & Family History - Family History Family Medical History: No Pertinent Family History - Tobacco Use Tobacco Use Status *Q: Never Tobacco User - Alcohol Use Alcohol Use History: No - Recreational Drug Use Recreational Drug Use: No H&P Review of Systems - Review of Systems: Review Of Systems: See Below General: Reports: Fever, Chills, Malaise, Weakness, Fatigue HEENT: Reports: Headaches, Sinus Congestion Pulmonary: Reports: Shortness of Breath, Cough. Denies: Sputum, Hemoptysis Cardiovascular: Reports: Dyspnea on Exertion. Denies: Chest Pain, Edema Gastrointestinal: Reports: Nausea, Vomiting. Denies: Black Stool, Bloody Stool Genitourinary: Reports: No Symptoms. Denies: Dysuria, Frequency, Burning Musculoskeletal: Reports: No Symptoms Skin: Reports: No Symptoms. Denies: Rash, Wound Psychiatric: Reports: No Symptoms Neurological: Reports: Confusion (Intermittent but now has improved since arrival to ER). Denies: Headache Hematologic/Lymphatic: Reports: No Symptoms Immunologic: Reports: No Symptoms Exam - Exam Exam: See Below - Vital Signs Vital Signs: Last Vital Signs Temp 100.3 F 08/25/20 14:55 Pulse 83 08/25/20 14:55 Resp 24 H 08/25/20 14:55 BP 117/47 L 08/25/20 14:55 Pulse Ox 95 08/25/20 14:55 Weight: 60 kg - Exam Quality Assessment: Supplemental Oxygen, DVT Prophylaxis General: Alert, Oriented, Cooperative HEENT: Conjunctiva Clear, Mucosa Moist & Orwell, Posterior Pharynx Clear Lungs: Crackles (Bibasilar). No: Normal Respiratory Effort (Dyspneic with speech and exertion) Cardiovascular: Regular Rate, Regular Rhythm GI/Abdominal Exam: Normal Bowel Sounds, Soft, Non-Tender, No Mass Back Exam: Normal Inspection, Full Range of Motion Extremities: Normal Inspection, Normal Range of Motion, Non-Tender, No Pedal Edema Skin: Warm, Dry Neurological: Cranial Nerves Intact Neuro Extensive - Mental Status: Alert, Oriented x3 Neuro Extensive - Motor, Sensory, Reflexes: CN II-XII Intact Psychiatric: Alert, Normal Affect, Normal Mood - Patient Data Lab Results Last 24 hrs: Laboratory Results - last 24 hr 08/25/20 08/25/20 08/25/20 Range/Units 11:50 11:50 11:50 WBC 8.63 (4.0-11.0) K/uL RBC 4.73 (4.30-5.90) M/uL Hgb 14.3 (12.0-16.0) g/dL Hct 43.4 (36.0-46.0) % MCV 91.8 (80.0-98.0) fL MCH 30.2 (27.0-32.0) pg MCHC 32.9 (31.0-37.0) g/dL RDW Std Deviation 46.2 (28.0-62.0) fl RDW Coeff of Sue 14 (11.0-15.0) % Plt Count 215 (150-400) K/uL MPV 10.70 (7.40-12.00) fL Neut % (Auto) 90.7 H (48.0-80.0) % Lymph % (Auto) 6.4 L (16.0-40.0) % Amador % (Auto) 2.9 (0.0-15.0) % Eos % (Auto) 0.0 (0.0-7.0) % Baso % (Auto) 0.0 (0.0-1.5) % Neut # (Auto) 7.8 H (1.4-5.7) K/uL Lymph # (Auto) 0.6 (0.6-2.4) K/uL Amador # (Auto) 0.3 (0.0-0.8) K/uL Eos # (Auto) 0.0 (0.0-0.7) K/uL Baso # (Auto) 0.0 (0.0-0.1) K/uL Nucleated RBC % 0.0 /100WBC Nucleated RBCs # 0 K/uL INR 1.10 D-Dimer, Quantitative (0.0-0.50) mg/L FEU Lactate 1.4 (0.20-2.00) mmol/L Sodium (136-145) mmol/L Potassium (3.5-5.1) mmol/L Chloride (98-107) mmol/L Carbon Dioxide (21.0-32.0) mmol/L BUN (7.0-18.0) mg/dL Creatinine (0.6-1.0) mg/dL Est Cr Clr Drug Dosing mL/min Estimated GFR (MDRD) ml/min Glucose (74-106) mg/dL Calcium (8.5-10.1) mg/dL Total Bilirubin (0.2-1.0) mg/dL AST (15-37) IU/L ALT (14-63) IU/L Alkaline Phosphatase (46-116) U/L Troponin I (0.000-0.056) ng/mL Total Protein (6.4-8.2) g/dL Albumin (3.4-5.0) g/dL Globulin (2.6-4.0) g/dL Albumin/Globulin Ratio (0.9-1.6) Lipase (73-393) U/L Urine Color Urine Appearance Urine pH (5.0-8.0) Ur Specific [place] (1.001-1.035) Urine Protein (NEGATIVE) mg/dL Urine Glucose (UA) (NEGATIVE) mg/dL Urine Ketones (NEGATIVE) mg/dL Urine Occult Blood (NEGATIVE) Urine Nitrite (NEGATIVE) Urine Bilirubin (NEGATIVE) Urine Ictotest Urine Urobilinogen (<2.0) EU/dL Ur Leukocyte Esterase (NEGATIVE) U Hyaline Cast (Auto) (0-2/LPF) Urine RBC (0-2/HPF) Urine WBC (0-5/HPF) Ur Epithelial Cells (NONE-FEW) Amorphous Sediment (NEGATIVE) Urine Bacteria (NEGATIVE) Fine Granular Casts (NEGATIVE) Urine Mucus (NONE-MOD) 08/25/20 08/25/20 08/25/20 Range/Units 11:50 11:50 12:10 WBC (4.0-11.0) K/uL RBC (4.30-5.90) M/uL Hgb (12.0-16.0) g/dL Hct (36.0-46.0) % MCV (80.0-98.0) fL MCH (27.0-32.0) pg MCHC (31.0-37.0) g/dL RDW Std Deviation (28.0-62.0) fl RDW Coeff of Sue (11.0-15.0) % Plt Count (150-400) K/uL MPV (7.40-12.00) fL Neut % (Auto) (48.0-80.0) % Lymph % (Auto) (16.0-40.0) % Amador % (Auto) (0.0-15.0) % Eos % (Auto) (0.0-7.0) % Baso % (Auto) (0.0-1.5) % Neut # (Auto) (1.4-5.7) K/uL Lymph # (Auto) (0.6-2.4) K/uL Amador # (Auto) (0.0-0.8) K/uL Eos # (Auto) (0.0-0.7) K/uL Baso # (Auto) (0.0-0.1) K/uL Nucleated RBC % /100WBC Nucleated RBCs # K/uL INR D-Dimer, Quantitative 2.14 H (0.0-0.50) mg/L FEU Lactate (0.20-2.00) mmol/L Sodium 133 L (136-145) mmol/L Potassium 3.8 (3.5-5.1) mmol/L Chloride 99 (98-107) mmol/L Carbon Dioxide 25.9 (21.0-32.0) mmol/L BUN 20 H (7.0-18.0) mg/dL Creatinine 1.1 H (0.6-1.0) mg/dL Est Cr Clr Drug Dosing 36.56 mL/min Estimated GFR (MDRD) 48.8 ml/min Glucose 122 H (74-106) mg/dL Calcium 8.5 (8.5-10.1) mg/dL Total Bilirubin 0.6 (0.2-1.0) mg/dL AST 107 H (15-37) IU/L ALT 102 H (14-63) IU/L Alkaline Phosphatase 60 (46-116) U/L Troponin I < 0.050 (0.000-0.056) ng/mL Total Protein 7.2 (6.4-8.2) g/dL Albumin 2.8 L (3.4-5.0) g/dL Globulin 4.4 H (2.6-4.0) g/dL Albumin/Globulin Ratio 0.6 L (0.9-1.6) Lipase 119 (73-393) U/L Urine Color DARK YELLOW Urine Appearance SLT CLOUDY Urine pH 6.0 (5.0-8.0) Ur Specific [place] >= 1.030 (1.001-1.035) Urine Protein 100 H (NEGATIVE) mg/dL Urine Glucose (UA) NEGATIVE (NEGATIVE) mg/dL Urine Ketones 15 H (NEGATIVE) mg/dL Urine Occult Blood SMALL H (NEGATIVE) Urine Nitrite NEGATIVE (NEGATIVE) Urine Bilirubin SMALL H (NEGATIVE) Urine Ictotest NEGATIVE Urine Urobilinogen 0.2 (<2.0) EU/dL Ur Leukocyte Esterase NEGATIVE (NEGATIVE) U Hyaline Cast (Auto) 0-2 (0-2/LPF) Urine RBC 0-2 (0-2/HPF) Urine WBC 0-2 (0-5/HPF) Ur Epithelial Cells OCCASIONAL (NONE-FEW) Amorphous Sediment MODERATE (NEGATIVE) Urine Bacteria FEW (NEGATIVE) Fine Granular Casts 0-3 (NEGATIVE) Urine Mucus MODERATE (NONE-MOD) Result Diagrams: 08/25/20 11:50 08/25/20 11:50 Hua Results Last 24 hrs: Microbiology 08/25/20 12:25 Anaerobic Blood Culture - Final Blood - Venous - Lab Draw Sepsis Event Note - Evaluation Sepsis Screening Result: Possible Sepsis Risk - Focused Exam Vital Signs: Vital Signs Temp Temp Pulse Resp BP Pulse Ox 08/25/20 14:55 100.3 F 83 24 H 117/47 L 95 08/25/20 13:40 92 28 H 126/50 L 96 08/25/20 13:01 100.3 F 08/25/20 13:00 87 21 H 124/44 L 96 08/25/20 12:31 101.6 F H 08/25/20 11:58 88 30 H 134/50 L 98 08/25/20 10:39 99.4 F 102 H 26 H 128/65 92 L - Problem List (1) Acute respiratory failure with hypoxia SNOMED Code(s): 02912260, 939534269 ICD Code: J96.01 - ACUTE RESPIRATORY FAILURE WITH HYPOXIA Status: Acute Current Visit: Yes (2) HTN (hypertension) SNOMED Code(s): 10844692 ICD Code: I10 - ESSENTIAL (PRIMARY) HYPERTENSION Status: Acute Current Visit: Yes (3) Rheumatoid arthritis SNOMED Code(s): 46861749 ICD Code: M06.9 - RHEUMATOID ARTHRITIS, UNSPECIFIED Status: Acute Current Visit: Yes (4) COVID-19 virus infection SNOMED Code(s): 461286835 ICD Code: U07.1 - COVID-19 Status: Acute Current Visit: Yes (5) Sepsis due to undetermined organism SNOMED Code(s): 87197045 ICD Code: A41.9 - SEPSIS, UNSPECIFIED ORGANISM Status: Acute Current Visit: Yes Problem List Initiated/Reviewed/Updated: Yes Orders Last 24hrs: Active Orders 24 hr Category Date Time Status Admission Status [Patient Status] [ADT] Stat ADT 08/25/20 15:03 Active Cardiac Monitoring [RC] CONTINUOUS Care 08/25/20 10:55 Active EKG Documentation Completion [RC] STAT Care 08/25/20 10:54 Active Overnight Pulse Oximetry [RC] Click to Edit Care 08/25/20 10:55 Active Oxygen Therapy, ED [RC] ASDIRECTED Care 08/25/20 13:41 Active CULTURE BLOOD [BC] Stat Lab 08/25/20 11:50 Received CULTURE BLOOD [BC] Stat Lab 08/25/20 12:25 Results Levofloxacin/Dextrose 5%-Water [Levaquin in D5W 750 MG/ Med 08/25/20 14:32 Active 150 ML] 750 mg Premix Bag 1 bag IV ONETIME Sodium Chloride 0.9% [Saline Flush] Med 08/25/20 10:54 Active 10 ml FLUSH ASDIRECTED PRN Sodium Chloride 0.9% [Saline Flush] Med 08/25/20 10:54 Active 2.5 ml FLUSH ASDIRECTED PRN Blood Culture x2 Reflex Set [OM.PC] Stat Oth 08/25/20 10:54 Ordered Pulse Oximetry Continuous Monitoring [OM.PC] Routine Oth 08/25/20 10:54 Ordered Saline Lock Insert [OM.PC] Stat Oth 08/25/20 10:54 Ordered Severe Sepsis Onset Time [OM.PC] Stat Oth 08/25/20 10:54 Ordered Medication Orders Levofloxacin/Dextrose 750 mg/ (Premix) 150 mls @ 100 mls/hr IV ONETIME ONE Stop: 08/25/20 16:01 Last Admin: 08/25/20 14:52 Dose: 100 mls/hr Documented by: MURDNIC Sodium Chloride (Saline Flush) 10 ml FLUSH ASDIRECTED PRN PRN Reason: Keep Vein Open Last Admin: 08/25/20 11:55 Dose: 10 ml Documented by: MURDNIC Sodium Chloride (Saline Flush) 2.5 ml FLUSH ASDIRECTED PRN PRN Reason: Keep Vein Open Last Admin: 08/25/20 11:56 Dose: 2.5 ml Documented by: MURDNIC Assessment/Plan Comment:: This 70-year-old female admitted with sepsis, acute hypoxic respiratory failure, COVID-19 pneumonia, CAP 1. Sepsis/acute hypoxic respiratory failure -Blood cultures pending, lactic acid normal. Received 1 L LR heart rate improved. Appears nontoxic and perfusing well. -Continue Levaquin for CAP and COVID-19 treatment plan 2. Covid 19 pneumonia -Start remdesivir 200 mg IV x1 then continue with remdesivir 100 mg x 4 -We will do dexamethasone to milligrams IV daily until patient able to tolerate oral pills -Oxygen as needed to keep sats greater than 92% or if dyspneic wean as possible -Prone or left lateral side-lying if possible -I-S and Acapella -Combivent as needed dyspnea -Monitor liver function daily mild transaminitis currently likely secondary to acute illness and poor p.o. intake. But not 5 times the normal limit. 3. HTN -Continue losartan monitor blood pressures 4. RA -Continue hydroxychloroquine per med rec VTE prophylaxis: Lovenox twice daily CODE STATUS: Full code Dispo: 2 to 3 days pending improvement Maura, [id number] [phone]
[2020-08-25] MEDS ORDERED: Ondansetron 4 MG/2 ML SDV IVPUSH PRN (15:53)
[2020-08-25] MEDS ORDERED: Acetaminophen 650 MG Supp RECTAL PRN (15:53)
[2020-08-25] MEDS ORDERED: Acetaminophen 325 MG Tab PO PRN (15:53)
[2020-08-25] MEDS ORDERED: Benzonatate 100 MG Cap PO PRN (15:56)
[2020-08-25] MEDS ORDERED: Pantoprazole 40 MG Vial IV SCH (16:00)
[2020-08-25] MEDS ORDERED: Albuterol/Ipratropium 4 GM Inhalation Spray INH PRN (16:00)
[2020-08-25] MEDS: Pantoprazole 40 MG in Sodium Chloride 0.9% 10 ML IV SCH (16:52)
[2020-08-25] MEDS ORDERED: Iopamidol 755 MG/ML 500 ML Multipack Bottle IVPUSH STA (18:30)
[2020-08-25] MEDS: Enoxaparin 40 MG/0.4 ML Syringe SUBCUT SCH (20:24)
[2020-08-26 07:11] LABS: BLOOD UREA NITROGEN,BUN 20 mg/dL (7.0-18.0); CARBON DIOXIDE,CO2 24.6 mmol/L (21.0-32.0); CHLORIDE,CL 105 mmol/L (98-107); GLUCOSE RANDOM 107 mg/dL (74-106); POTASSIUM,K 4.2 mmol/L (3.5-5.1); SODIUM,NA 139 mmol/L (136-145)
[2020-08-26] MEDS: Enoxaparin 40 MG/0.4 ML Syringe SUBCUT SCH ×2 (08:41→21:08)
[2020-08-26] MEDS ORDERED: FLU Vacc QV2020-21(65YR UP)/PF 240 MCG/0.7 ML Syringe IM ONE (09:00)
--- NOTE | 2020-08-26 10:22 | PCM.PN ---
- General Info Date of Service: 08/26/20 Admission Dx/Problem (Free Text): Admission Diagnosis/Problem Admission Diagnosis/Problem Respiratory distress Subjective Update: Reports he is feeling slightly better today. Denies any overt shortness of breath though intermittently she does appear to be short of breath. Reports some mild fecal incontinence. Cough that is intermittently productive. Denies any chest pain. Continues to have significant fatigue. I did speak with Екатерина [id number] who reports she does appear to be slightly sluggish and confused intermittently still. But does states she feels she is improved. Functional Status: Reports: Pain Controlled, Tolerating Diet, Ambulating, Urinating - Review of Systems General: Reports: Weakness, Fatigue, Malaise HEENT: Reports: No Symptoms. Denies: Headaches, Sinus Congestion Pulmonary: Reports: Shortness of Breath, Cough Cardiovascular: Reports: No Symptoms. Denies: Chest Pain Gastrointestinal: Reports: Diarrhea. Denies: Abdominal Pain, Nausea, Vomiting Genitourinary: Reports: No Symptoms. Denies: Dysuria, Frequency Musculoskeletal: Reports: No Symptoms Skin: Reports: No Symptoms Neurological: Reports: No Symptoms Psychiatric: Reports: No Symptoms - Patient Data Vitals - Most Recent: Last Vital Signs Temp 98.2 F 08/26/20 07:45 Pulse 71 08/26/20 07:45 Resp 20 08/26/20 07:45 BP 126/58 L 08/26/20 07:45 Pulse Ox 95 08/26/20 07:45 Weight - Most Recent: 69.264 kg I&O - Last 24 Hours: Intake & Output 08/25/20 08/26/20 08/26/20 22:59 06:59 14:59 Intake Total 400 Output Total 550 Balance -150 Lab Results Last 24 Hours: Laboratory Results - last 24 hr 08/25/20 08/25/20 08/25/20 Range/Units 11:50 11:50 11:50 WBC 8.63 (4.0-11.0) K/uL RBC 4.73 (4.30-5.90) M/uL Hgb 14.3 (12.0-16.0) g/dL Hct 43.4 (36.0-46.0) % MCV 91.8 (80.0-98.0) fL MCH 30.2 (27.0-32.0) pg MCHC 32.9 (31.0-37.0) g/dL RDW Std Deviation 46.2 (28.0-62.0) fl RDW Coeff of Sue 14 (11.0-15.0) % Plt Count 215 (150-400) K/uL MPV 10.70 (7.40-12.00) fL Neut % (Auto) 90.7 H (48.0-80.0) % Lymph % (Auto) 6.4 L (16.0-40.0) % [place] % (Auto) 2.9 (0.0-15.0) % Eos % (Auto) 0.0 (0.0-7.0) % Baso % (Auto) 0.0 (0.0-1.5) % Neut # (Auto) 7.8 H (1.4-5.7) K/uL Lymph # (Auto) 0.6 (0.6-2.4) K/uL Harney # (Auto) 0.3 (0.0-0.8) K/uL Eos # (Auto) 0.0 (0.0-0.7) K/uL Baso # (Auto) 0.0 (0.0-0.1) K/uL Nucleated RBC % 0.0 /100WBC Nucleated RBCs # 0 K/uL INR 1.10 D-Dimer, Quantitative (0.0-0.50) mg/L FEU Lactate 1.4 (0.20-2.00) mmol/L Sodium (136-145) mmol/L Potassium (3.5-5.1) mmol/L Chloride (98-107) mmol/L Carbon Dioxide (21.0-32.0) mmol/L BUN (7.0-18.0) mg/dL Creatinine (0.6-1.0) mg/dL Est Cr Clr Drug Dosing mL/min Estimated GFR (MDRD) ml/min Glucose (74-106) mg/dL Calcium (8.5-10.1) mg/dL Magnesium (1.8-2.4) mg/dL Total Bilirubin (0.2-1.0) mg/dL AST (15-37) IU/L ALT (14-63) IU/L Alkaline Phosphatase (46-116) U/L Troponin I (0.000-0.056) ng/mL Total Protein (6.4-8.2) g/dL Albumin (3.4-5.0) g/dL Globulin (2.6-4.0) g/dL Albumin/Globulin Ratio (0.9-1.6) Lipase (73-393) U/L Urine Color Urine Appearance Urine pH (5.0-8.0) Ur Specific [place] (1.001-1.035) Urine Protein (NEGATIVE) mg/dL Urine Glucose (UA) (NEGATIVE) mg/dL Urine Ketones (NEGATIVE) mg/dL Urine Occult Blood (NEGATIVE) Urine Nitrite (NEGATIVE) Urine Bilirubin (NEGATIVE) Urine Ictotest Urine Urobilinogen (<2.0) EU/dL Ur Leukocyte Esterase (NEGATIVE) U Hyaline Cast (Auto) (0-2/LPF) Urine RBC (0-2/HPF) Urine WBC (0-5/HPF) Ur Epithelial Cells (NONE-FEW) Amorphous Sediment (NEGATIVE) Urine Bacteria (NEGATIVE) Fine Granular Casts (NEGATIVE) Urine Mucus (NONE-MOD) 08/25/20 08/25/20 08/25/20 Range/Units 11:50 11:50 12:10 WBC (4.0-11.0) K/uL RBC (4.30-5.90) M/uL Hgb (12.0-16.0) g/dL Hct (36.0-46.0) % MCV (80.0-98.0) fL MCH (27.0-32.0) pg MCHC (31.0-37.0) g/dL RDW Std Deviation (28.0-62.0) fl RDW Coeff of Sue (11.0-15.0) % Plt Count (150-400) K/uL MPV (7.40-12.00) fL Neut % (Auto) (48.0-80.0) % Lymph % (Auto) (16.0-40.0) % [place] % (Auto) (0.0-15.0) % Eos % (Auto) (0.0-7.0) % Baso % (Auto) (0.0-1.5) % Neut # (Auto) (1.4-5.7) K/uL Lymph # (Auto) (0.6-2.4) K/uL Harney # (Auto) (0.0-0.8) K/uL Eos # (Auto) (0.0-0.7) K/uL Baso # (Auto) (0.0-0.1) K/uL Nucleated RBC % /100WBC Nucleated RBCs # K/uL INR D-Dimer, Quantitative 2.14 H (0.0-0.50) mg/L FEU Lactate (0.20-2.00) mmol/L Sodium 133 L (136-145) mmol/L Potassium 3.8 (3.5-5.1) mmol/L Chloride 99 (98-107) mmol/L Carbon Dioxide 25.9 (21.0-32.0) mmol/L BUN 20 H (7.0-18.0) mg/dL Creatinine 1.1 H (0.6-1.0) mg/dL Est Cr Clr Drug Dosing 36.56 mL/min Estimated GFR (MDRD) 48.8 ml/min Glucose 122 H (74-106) mg/dL Calcium 8.5 (8.5-10.1) mg/dL Magnesium (1.8-2.4) mg/dL Total Bilirubin 0.6 (0.2-1.0) mg/dL AST 107 H (15-37) IU/L ALT 102 H (14-63) IU/L Alkaline Phosphatase 60 (46-116) U/L Troponin I < 0.050 (0.000-0.056) ng/mL Total Protein 7.2 (6.4-8.2) g/dL Albumin 2.8 L (3.4-5.0) g/dL Globulin 4.4 H (2.6-4.0) g/dL Albumin/Globulin Ratio 0.6 L (0.9-1.6) Lipase 119 (73-393) U/L Urine Color DARK YELLOW Urine Appearance SLT CLOUDY Urine pH 6.0 (5.0-8.0) Ur Specific [place] >= 1.030 (1.001-1.035) Urine Protein 100 H (NEGATIVE) mg/dL Urine Glucose (UA) NEGATIVE (NEGATIVE) mg/dL Urine Ketones 15 H (NEGATIVE) mg/dL Urine Occult Blood SMALL H (NEGATIVE) Urine Nitrite NEGATIVE (NEGATIVE) Urine Bilirubin SMALL H (NEGATIVE) Urine Ictotest NEGATIVE Urine Urobilinogen 0.2 (<2.0) EU/dL Ur Leukocyte Esterase NEGATIVE (NEGATIVE) U Hyaline Cast (Auto) 0-2 (0-2/LPF) Urine RBC 0-2 (0-2/HPF) Urine WBC 0-2 (0-5/HPF) Ur Epithelial Cells OCCASIONAL (NONE-FEW) Amorphous Sediment MODERATE (NEGATIVE) Urine Bacteria FEW (NEGATIVE) Fine Granular Casts 0-3 (NEGATIVE) Urine Mucus MODERATE (NONE-MOD) 08/26/20 08/26/20 Range/Units 06:23 06:23 WBC 6.41 (4.0-11.0) K/uL RBC 4.34 (4.30-5.90) M/uL Hgb 13.0 (12.0-16.0) g/dL Hct 39.8 (36.0-46.0) % MCV 91.7 (80.0-98.0) fL MCH 30.0 (27.0-32.0) pg MCHC 32.7 (31.0-37.0) g/dL RDW Std Deviation 45.5 (28.0-62.0) fl RDW Coeff of Sue 14 (11.0-15.0) % Plt Count 234 (150-400) K/uL MPV 10.70 (7.40-12.00) fL Neut % (Auto) 85.6 H (48.0-80.0) % Lymph % (Auto) 10.1 L (16.0-40.0) % Har[place] % (Auto) 4.1 (0.0-15.0) % Eos % (Auto) 0.0 (0.0-7.0) % Baso % (Auto) 0.2 (0.0-1.5) % Neut # (Auto) 5.5 (1.4-5.7) K/uL Lymph # (Auto) 0.7 (0.6-2.4) K/uL [place] # (Auto) 0.3 (0.0-0.8) K/uL Eos # (Auto) 0.0 (0.0-0.7) K/uL Baso # (Auto) 0.0 (0.0-0.1) K/uL Nucleated RBC % 0.0 /100WBC Nucleated RBCs # 0 K/uL INR D-Dimer, Quantitative (0.0-0.50) mg/L FEU Lactate (0.20-2.00) mmol/L Sodium 139 (136-145) mmol/L Potassium 4.2 (3.5-5.1) mmol/L Chloride 105 (98-107) mmol/L Carbon Dioxide 24.6 (21.0-32.0) mmol/L BUN 20 H (7.0-18.0) mg/dL Creatinine 0.8 (0.6-1.0) mg/dL Est Cr Clr Drug Dosing 50.27 mL/min Estimated GFR (MDRD) > 60.0 ml/min Glucose 107 H (74-106) mg/dL Calcium 8.6 (8.5-10.1) mg/dL Magnesium 2.4 (1.8-2.4) mg/dL Total Bilirubin 0.4 (0.2-1.0) mg/dL AST 75 H (15-37) IU/L ALT 78 H (14-63) IU/L Alkaline Phosphatase 53 (46-116) U/L Troponin I (0.000-0.056) ng/mL Total Protein 6.4 (6.4-8.2) g/dL Albumin 2.3 L (3.4-5.0) g/dL Globulin 4.1 H (2.6-4.0) g/dL Albumin/Globulin Ratio 0.6 L (0.9-1.6) Lipase (73-393) U/L Urine Color Urine Appearance Urine pH (5.0-8.0) Ur Specific [place] (1.001-1.035) Urine Protein (NEGATIVE) mg/dL Urine Glucose (UA) (NEGATIVE) mg/dL Urine Ketones (NEGATIVE) mg/dL Urine Occult Blood (NEGATIVE) Urine Nitrite (NEGATIVE) Urine Bilirubin (NEGATIVE) Urine Ictotest Urine Urobilinogen (<2.0) EU/dL Ur Leukocyte Esterase (NEGATIVE) U Hyaline Cast (Auto) (0-2/LPF) Urine RBC (0-2/HPF) Urine WBC (0-5/HPF) Ur Epithelial Cells (NONE-FEW) Amorphous Sediment (NEGATIVE) Urine Bacteria (NEGATIVE) Fine Granular Casts (NEGATIVE) Urine Mucus (NONE-MOD) Hua Results Last 24 Hours: Microbiology 08/25/20 12:25 Anaerobic Blood Culture - Final Blood - Venous - Lab Draw Med Orders - Current: Current Medications Acetaminophen (Tylenol) 650 mg PO Q4H PRN PRN Reason: Pain (Mild 1-3)/fever Acetaminophen (Tylenol) 650 mg RECTAL Q4H PRN PRN Reason: Pain (mild 1-3) Albuterol/Ipratropium (Combivent Respimat) 0 gm INH Q4H PRN PRN Reason: Dyspnea Benzonatate (Tessalon Perles) 100 mg PO TID PRN PRN Reason: Cough Dexamethasone (Decadron) 6 mg IVPUSH Q24H ALAINA Enoxaparin Sodium (Lovenox) 40 mg SUBCUT Q12HR [facility] Last Admin: 08/26/20 08:41 Dose: 40 mg Documented by: Remdesivir 100 mg/ Sodium (Chloride) 100 mls @ 100 mls/hr IV Q24H ALAINA Stop: 08/29/20 16:59 Pantoprazole Sodium 40 mg/ (Sodium Chloride) 10 mls @ 300 mls/hr IV Q24H ALAINA Last Admin: 08/25/20 16:52 Dose: 300 mls/hr Documented by: Levofloxacin/Dextrose 750 mg/ (Premix) 150 mls @ 100 mls/hr IV Q24H ALAINA Ondansetron HCl (Zofran) 4 mg IVPUSH Q4H PRN PRN Reason: Nausea Sodium Chloride (Saline Flush) 2.5 ml FLUSH ASDIRECTED PRN PRN Reason: Keep Vein Open Discontinued Medications Acetaminophen (Tylenol) 650 mg RECTAL NOW ONE Stop: 08/25/20 12:07 Last Admin: 08/25/20 12:31 Dose: 650 mg Documented by: Dexamethasone (Decadron) 6 mg IVPUSH ONETIME ONE Stop: 08/25/20 15:45 Last Admin: 08/25/20 16:50 Dose: 6 mg Documented by: Lactated Ringer's (Ringers, Lactated) 1,000 mls @ 999 mls/hr IV .BOLUS ONE Stop: 08/25/20 11:55 Last Admin: 08/25/20 11:55 Dose: 999 mls/hr Documented by: Levofloxacin/Dextrose 750 mg/ (Premix) 150 mls @ 100 mls/hr IV ONETIME ONE Stop: 08/25/20 16:01 Last Admin: 08/25/20 14:52 Dose: 100 mls/hr Documented by: Remdesivir 200 mg/ Sodium (Chloride) 250 mls @ 250 mls/hr IV ONETIME ONE Stop: 08/25/20 17:59 Last Admin: 08/25/20 17:16 Dose: 250 mls/hr Documented by: Influenza Virus Vaccine (Fluzone High-Dose Quad 2020-) 240 mcg IM .ONCE ONE Stop: 08/26/20 09:01 Iopamidol (Isovue Multipack-370 (76%)) 75 ml IVPUSH ONETIME STA Stop: 08/25/20 18:31 Last Admin: 08/25/20 18:31 Dose: 75 ml Documented by: Sodium Chloride (Saline Flush) 10 ml FLUSH ASDIRECTED PRN PRN Reason: Keep Vein Open Last Admin: 08/25/20 11:55 Dose: 10 ml Documented by: Sodium Chloride (Saline Flush) 2.5 ml FLUSH ASDIRECTED PRN PRN Reason: Keep Vein Open Last Admin: 08/25/20 11:56 Dose: 2.5 ml Documented by: - Exam Quality Assessment: Supplemental Oxygen (1 to 2 L), DVT Prophylaxis (Lovenox) General: Alert, Oriented Lungs: Crackles (Fine bibasilar crackles). No: Normal Respiratory Effort (Intermittent dyspnea especially with activity) Cardiovascular: Regular Rate, Regular Rhythm GI/Abdominal Exam: Normal Bowel Sounds, Soft, Non-Tender Back Exam: Normal Inspection, Full Range of Motion Extremities: Normal Inspection, Normal Range of Motion, Non-Tender, No Pedal Edema Neurological: No New Focal Deficit Psy/Mental Status: Alert, Normal Affect, Normal Mood Sepsis Event Note - Evaluation Sepsis Screening Result: No Definite Risk - Focused Exam Vital Signs: Vital Signs Temp Temp Pulse Resp BP Pulse Ox 08/26/20 07:45 98.2 F 71 20 126/58 L 95 08/26/20 04:30 19 94 L 08/26/20 03:17 97.7 F 96.9 F 76 20 115/60 95 08/25/20 23:29 97.3 F 73 20 104/56 L 96 - Problem List & Annotations (1) Acute respiratory failure with hypoxia SNOMED Code(s): 07262515, 563624724 Code(s): J96.01 - ACUTE RESPIRATORY FAILURE WITH HYPOXIA Status: Acute Current Visit: Yes (2) HTN (hypertension) SNOMED Code(s): 88763312 Code(s): I10 - ESSENTIAL (PRIMARY) HYPERTENSION Status: Acute Current Visit: Yes (3) Rheumatoid arthritis SNOMED Code(s): 59554581 Code(s): M06.9 - RHEUMATOID ARTHRITIS, UNSPECIFIED Status: Acute Current Visit: Yes (4) COVID-19 virus infection SNOMED Code(s): 565247754 Code(s): U07.1 - COVID-19 Status: Acute Current Visit: Yes (5) Sepsis due to undetermined organism SNOMED Code(s): 76999875 Code(s): A41.9 - SEPSIS, UNSPECIFIED ORGANISM Status: Acute Current Visit: Yes - Problem List Review Problem List Initiated/Reviewed/Updated: Yes - My Orders Last 24 Hours: My Active Orders 08/25/20 Lunch Regular Diet [DIET] 08/25/20 15:53 Intake and Output [RC] Q12H Oxygen Therapy [RC] PRN Up to Chair [RC] ASDIRECTED VTE/DVT Education [RC] PER UNIT ROUTINE Vital Signs [RC] Q4H Acetaminophen [TylenoL] 650 mg PO Q4H PRN Acetaminophen [Tylenol] 650 mg RECTAL Q4H PRN Ondansetron [Zofran] 4 mg IVPUSH Q4H PRN Sodium Chloride 0.9% [Saline Flush] 2.5 ml FLUSH ASDIRECTED PRN Saline Lock Insert [OM.PC] Routine Resuscitation Status Routine 08/25/20 15:56 Benzonatate [Tessalon Perles] 100 mg PO TID PRN 08/25/20 15:57 Communication Order [RC] ROUTINE RT Incentive Spirometry [RC] Q1HWA RT Acapella [RESPCARE] Routine 08/25/20 15:59 Pulse Oximetry Continuous Monitoring [OM.PC] Routine 08/25/20 16:00 RT Post Treatment Assessment [RC] Click to Edit RT Pre-Treatment Assessment [RC] Click to Edit Albuterol/Ipratropium [Combivent Respimat] See Dose Instructions INH Q4H PRN Pantoprazole [ProTONIX IV] 40 mg Sodium Chloride 0.9% [Normal Saline] 10 ml IV Q24H 08/25/20 21:00 Enoxaparin [Lovenox] 40 mg SUBCUT Q12HR 08/26/20 15:00 Levofloxacin/Dextrose 5%-Water [Levaquin in D5W 750 MG/150 ML] 750 mg Premix Bag 1 bag IV Q24H 08/26/20 16:00 Remdesivir 100 mg Sodium Chloride 0.9% [Normal Saline] 100 ml IV Q24H dexAMETHasone [Decadron] 6 mg IVPUSH Q24H 08/27/20 05:11 CBC WITH AUTO DIFF [HEME] AM COMPREHENSIVE METABOLIC PN,CMP [CHEM] AM MG [MAGNESIUM] [CHEM] AM 08/28/20 05:11 CBC WITH AUTO DIFF [HEME] AM COMPREHENSIVE METABOLIC PN,CMP [CHEM] AM MG [MAGNESIUM] [CHEM] AM - Plan Plan:: This 70-year-old female admitted with sepsis, acute hypoxic respiratory failure, COVID-19 pneumonia, CAP 1. Sepsis/acute hypoxic respiratory failure -Sepsis resolved -Continue Levaquin for CAP and COVID-19 treatment plan 2. Covid 19 pneumonia - continue with remdesivir 100 mg x 4 -Dexamethasone 6 mg p.o. daily -Oxygen as needed to keep sats greater than 92% or if dyspneic wean as possible -Prone or left lateral side-lying if possible -I-S and Acapella -Combivent as needed dyspnea -Transaminitis improved will hold statin during remdesivir treatment -Mild diarrhea noted we will continue to monitor bolus IV fluid if appearing dehydrated but is tolerating liquids and diet well. 3. HTN -Blood pressures stable not eating what much will monitor blood pressure and hold losartan hydrochlorthiazide 4. RA -Continue hydroxychloroquine VTE prophylaxis: Lovenox twice daily CODE STATUS: Full code Dispo: 2 to 3 days pending improvement Maura, [id number]. Updated [id number] today 08/26. She will inform the rest of the family
[2020-08-26] MEDS: Levofloxacin/Dextrose 5%-Water 750 MG in Premix Bag 1 BAG IV SCH (14:58)
[2020-08-26] MEDS: Dexamethasone 4 MG Tab PO SCH (14:59)
[2020-08-26] MEDS ORDERED: Dexamethasone 10 MG/ML SDV IVPUSH SCH (16:00)
[2020-08-26] MEDS: REMDESIVIR 100 MG in Sodium Chloride 0.9% 100 ML IV SCH (16:38)
[2020-08-26] MEDS: Pantoprazole 40 MG in Sodium Chloride 0.9% 10 ML IV SCH (17:47)
[2020-08-26] MEDS: Acetaminophen 500 MG Tab PO SCH (21:06)
[2020-08-26] MEDS: Cyclosporine [Restasis Multidose] 1 DROP EYEBOTH SCH (21:09)
[2020-08-26] MEDS: VITAMIN D2 PO SCH (21:09)
[2020-08-26] MEDS: CALCIUM CITRATE PO SCH (21:09)
[2020-08-27 07:09] LABS: BLOOD UREA NITROGEN,BUN 27 mg/dL (7.0-18.0); CHLORIDE,CL 105 mmol/L (98-107); GLUCOSE RANDOM 166 mg/dL (74-106); SODIUM,NA 138 mmol/L (136-145)
[2020-08-27] MEDS ORDERED: Hydroxychloroquine 200 MG Tab PO SCH ×2 (09:00→10:21)
[2020-08-27] MEDS: CALCIUM CITRATE PO SCH ×2 (09:05→22:13)
[2020-08-27] MEDS: Cyclosporine [Restasis Multidose] 1 DROP EYEBOTH SCH ×2 (09:05→22:12)
[2020-08-27] MEDS: Enoxaparin 40 MG/0.4 ML Syringe SUBCUT SCH ×2 (09:05→21:38)
[2020-08-27] MEDS: Acetaminophen 500 MG Tab PO SCH ×2 (09:05→21:39)
[2020-08-27] MEDS: VITAMIN D2 PO SCH ×2 (09:05→22:13)
--- NOTE | 2020-08-27 09:31 | PCM.PN ---
- General Info Date of Service: 08/27/20 Admission Dx/Problem (Free Text): Admission Diagnosis/Problem Admission Diagnosis/Problem Respiratory distress Subjective Update: Reports she is feeling improved today. Continues to have dry nonproductive cough. Denies any chest pain. Continues to report poor appetite, feels that she gets very full after only a couple bites. She is drinking but reports she could be drinking more. She was encouraged to increase oral intake as she can. No further diarrhea overnight. Functional Status: Reports: Pain Controlled, Tolerating Diet, Ambulating, Urinating - Review of Systems General: Reports: Fatigue, Malaise (Improving) Pulmonary: Reports: Cough. Denies: Shortness of Breath, Sputum Cardiovascular: Reports: No Symptoms. Denies: Chest Pain, Dyspnea on Exertion Gastrointestinal: Reports: Decreased Appetite. Denies: Abdominal Pain, Diarrhea, Nausea, Vomiting Genitourinary: Reports: No Symptoms. Denies: Dysuria, Frequency, Burning Musculoskeletal: Reports: No Symptoms. Denies: Neck Pain Skin: Reports: No Symptoms Neurological: Reports: No Symptoms Psychiatric: Reports: No Symptoms. Denies: Confusion - Patient Data Vitals - Most Recent: Last Vital Signs Temp 96.8 F L 08/27/20 08:55 Pulse 65 08/27/20 08:55 Resp 18 08/27/20 08:55 BP 126/66 08/27/20 08:55 Pulse Ox 92 L 08/27/20 08:55 Weight - Most Recent: 69.264 kg I&O - Last 24 Hours: Intake & Output 08/26/20 08/27/20 08/27/20 22:59 06:59 14:59 Intake Total 840 550 Output Total 500 400 Balance 340 150 Lab Results Last 24 Hours: Laboratory Results - last 24 hr 08/27/20 08/27/20 Range/Units 06:25 06:25 WBC 7.37 (4.0-11.0) K/uL RBC 4.24 L (4.30-5.90) M/uL Hgb 13.0 (12.0-16.0) g/dL Hct 38.9 (36.0-46.0) % MCV 91.7 (80.0-98.0) fL MCH 30.7 (27.0-32.0) pg MCHC 33.4 (31.0-37.0) g/dL RDW Std Deviation 46.7 (28.0-62.0) fl RDW Coeff of Sue 14 (11.0-15.0) % Plt Count 301 (150-400) K/uL MPV 11.20 (7.40-12.00) fL Add Manual Diff YES Neutrophils % (Manual) 69 (48.0-80.0) % Band Neutrophils % 8 % Lymphocytes % (Manual) 17 (16.0-40.0) % Monocytes % (Manual) 6 (0.0-15.0) % Nucleated RBC % 0.0 /100WBC Absolute Seg Neuts 5.1 (1.4-5.7) Band Neutrophils # 0.6 Lymphocytes # (Manual) 1.3 (0.6-2.4) Monocytes # (Manual) 0.4 (0.0-0.8) Nucleated RBCs # 0 K/uL Sodium 138 (136-145) mmol/L Potassium 4.0 (3.5-5.1) mmol/L Chloride 105 (98-107) mmol/L Carbon Dioxide 25.0 (21.0-32.0) mmol/L BUN 27 H (7.0-18.0) mg/dL Creatinine 0.9 (0.6-1.0) mg/dL Est Cr Clr Drug Dosing 44.69 mL/min Estimated GFR (MDRD) > 60.0 ml/min Glucose 166 H (74-106) mg/dL Calcium 8.4 L (8.5-10.1) mg/dL Magnesium 2.5 H (1.8-2.4) mg/dL Total Bilirubin 0.3 (0.2-1.0) mg/dL AST 55 H (15-37) IU/L ALT 70 H (14-63) IU/L Alkaline Phosphatase 51 (46-116) U/L Total Protein 6.2 L (6.4-8.2) g/dL Albumin 2.3 L (3.4-5.0) g/dL Globulin 3.9 (2.6-4.0) g/dL Albumin/Globulin Ratio 0.6 L (0.9-1.6) Hua Results Last 24 Hours: Microbiology 08/25/20 12:25 Aerobic Blood Culture - Preliminary Blood - Venous - Lab Draw NO GROWTH AFTER 1 DAY Anaerobic Blood Culture - Final 08/25/20 11:50 Aerobic Blood Culture - Preliminary Blood - Venous NO GROWTH AFTER 1 DAY Anaerobic Blood Culture - Preliminary NO GROWTH AFTER 1 DAY Med Orders - Current: Current Medications Acetaminophen (Tylenol) 650 mg PO Q4H PRN PRN Reason: Pain (Mild 1-3)/fever Acetaminophen (Tylenol) 650 mg RECTAL Q4H PRN PRN Reason: Pain (mild 1-3) Acetaminophen (Tylenol Extra Strength) 500 mg PO BID [facility] Last Admin: 08/27/20 09:05 Dose: 500 mg Documented by: Albuterol/Ipratropium (Combivent Respimat) 0 gm INH Q4H PRN PRN Reason: Dyspnea Benzonatate (Tessalon Perles) 100 mg PO TID PRN PRN Reason: Cough Dexamethasone (Dexamethasone) 6 mg PO DAILY@1500 [facility] Last Admin: 08/26/20 14:59 Dose: 6 mg Documented by: Enoxaparin Sodium (Lovenox) 40 mg SUBCUT Q12HR [facility] Last Admin: 08/27/20 09:05 Dose: 40 mg Documented by: Hydroxychloroquine Sulfate (Plaquenil) 400 mg PO DAILY [facility] Last Admin: 08/27/20 09:05 Dose: 400 mg Documented by: Remdesivir 100 mg/ Sodium (Chloride) 100 mls @ 100 mls/hr IV Q24H [facility] Stop: 08/29/20 16:59 Last Admin: 08/26/20 16:38 Dose: 100 mls/hr Documented by: Pantoprazole Sodium 40 mg/ (Sodium Chloride) 10 mls @ 300 mls/hr IV Q24H [facility] Last Admin: 08/26/20 17:47 Dose: 300 mls/hr Documented by: Levofloxacin/Dextrose 750 mg/ (Premix) 150 mls @ 100 mls/hr IV Q24H [facility] Last Admin: 08/26/20 14:58 Dose: 100 mls/hr Documented by: Ondansetron HCl (Zofran) 4 mg IVPUSH Q4H PRN PRN Reason: Nausea Calcium Citrate/Vitamin D2 [[place]- Citrate Plus Vitamin D Ta 1 each PO BID [facility] Last Admin: 08/27/20 09:05 Dose: Not Given Documented by: Cyclosporine [ Restasis Multidose] 1 Drop 1 each EYEBOTH BID [facility] Last Admin: 08/27/20 09:05 Dose: Not Given Documented by: Sodium Chloride (Saline Flush) 2.5 ml FLUSH ASDIRECTED PRN PRN Reason: Keep Vein Open Discontinued Medications Acetaminophen (Tylenol) 650 mg RECTAL NOW ONE Stop: 08/25/20 12:07 Last Admin: 08/25/20 12:31 Dose: 650 mg Documented by: Dexamethasone (Decadron) 6 mg IVPUSH ONETIME ONE Stop: 08/25/20 15:45 Last Admin: 08/25/20 16:50 Dose: 6 mg Documented by: Dexamethasone (Decadron) 6 mg IVPUSH Q24H ALAINA Lactated Ringer's (Ringers, Lactated) 1,000 mls @ 999 mls/hr IV .BOLUS ONE Stop: 08/25/20 11:55 Last Admin: 08/25/20 11:55 Dose: 999 mls/hr Documented by: Levofloxacin/Dextrose 750 mg/ (Premix) 150 mls @ 100 mls/hr IV ONETIME ONE Stop: 08/25/20 16:01 Last Admin: 08/25/20 14:52 Dose: 100 mls/hr Documented by: Remdesivir 200 mg/ Sodium (Chloride) 250 mls @ 250 mls/hr IV ONETIME ONE Stop: 08/25/20 17:59 Last Admin: 08/25/20 17:16 Dose: 250 mls/hr Documented by: Influenza Virus Vaccine (Fluzone High-Dose Quad ) 240 mcg IM .ONCE ONE Stop: 08/26/20 09:01 Iopamidol (Isovue Multipack-370 (76%)) 75 ml IVPUSH ONETIME STA Stop: 08/25/20 18:31 Last Admin: 08/25/20 18:31 Dose: 75 ml Documented by: Sodium Chloride (Saline Flush) 10 ml FLUSH ASDIRECTED PRN PRN Reason: Keep Vein Open Last Admin: 08/25/20 11:55 Dose: 10 ml Documented by: Sodium Chloride (Saline Flush) 2.5 ml FLUSH ASDIRECTED PRN PRN Reason: Keep Vein Open Last Admin: 08/25/20 11:56 Dose: 2.5 ml Documented by: - Exam Quality Assessment: Supplemental Oxygen, DVT Prophylaxis General: Alert, Oriented, Cooperative, No Acute Distress Lungs: Normal Respiratory Effort, Decreased Breath Sounds (Bibasilar) Cardiovascular: Regular Rate, Regular Rhythm, No Murmurs GI/Abdominal Exam: Normal Bowel Sounds, Soft, Non-Tender Back Exam: Normal Inspection, Full Range of Motion Extremities: Normal Inspection, Normal Range of Motion, Non-Tender, No Pedal Edema Wound/Incisions: Healing Well Neurological: No New Focal Deficit Psy/Mental Status: Alert, Normal Affect, Normal Mood Sepsis Event Note - Evaluation Sepsis Screening Result: No Definite Risk - Focused Exam Vital Signs: Vital Signs Temp Pulse Resp BP Pulse Ox 08/27/20 08:55 96.8 F L 65 18 126/66 92 L 08/27/20 03:35 97.4 F 67 18 106/43 L 95 08/27/20 00:24 97.1 F 66 18 120/44 L 95 - Problem List & Annotations (1) Acute respiratory failure with hypoxia SNOMED Code(s): 13747915, 625775845 Code(s): J96.01 - ACUTE RESPIRATORY FAILURE WITH HYPOXIA Status: Acute Current Visit: Yes (2) HTN (hypertension) SNOMED Code(s): 86322322 Code(s): I10 - ESSENTIAL (PRIMARY) HYPERTENSION Status: Acute Current Visit: Yes (3) Rheumatoid arthritis SNOMED Code(s): 24747840 Code(s): M06.9 - RHEUMATOID ARTHRITIS, UNSPECIFIED Status: Acute Current Visit: Yes (4) COVID-19 virus infection SNOMED Code(s): 338688942 Code(s): U07.1 - COVID-19 Status: Acute Current Visit: Yes (5) Sepsis due to undetermined organism SNOMED Code(s): 18480739 Code(s): A41.9 - SEPSIS, UNSPECIFIED ORGANISM Status: Acute Current Visit: Yes - Problem List Review Problem List Initiated/Reviewed/Updated: Yes - My Orders Last 24 Hours: My Active Orders 08/26/20 15:00 Levofloxacin/Dextrose 5%-Water [Levaquin in D5W 750 MG/150 ML] 750 mg Premix Bag 1 bag IV Q24H 08/26/20 16:00 Remdesivir 100 mg Sodium Chloride 0.9% [Normal Saline] 100 ml IV Q24H 08/26/20 21:00 Acetaminophen [Tylenol Extra Strength] 500 mg PO BID Patient's Own Medication [Ptom] 1 each EYEBOTH BID Patient's Own Medication [Ptom] 1 each PO BID 08/27/20 09:00 Hydroxychloroquine [Plaquenil] 400 mg PO DAILY 08/28/20 05:11 CBC WITH AUTO DIFF [HEME] AM COMPREHENSIVE METABOLIC PN,CMP [CHEM] AM MG [MAGNESIUM] [CHEM] AM - Plan Plan:: This 70-year-old female admitted with sepsis, acute hypoxic respiratory failure, COVID-19 pneumonia, CAP 1. acute hypoxic respiratory failure -Continue Levaquin for CAP and COVID-19 treatment plan 2. Covid 19 pneumonia - continue with remdesivir 100 mg x 4 days -Dexamethasone 6 mg p.o. daily -Oxygen as needed to keep sats greater than 92% or if dyspneic wean as possible -Prone or left lateral side-lying if possible -I-S and Acapella -Combivent as needed dyspnea -Transaminitis improved will hold statin during remdesivir treatment -Reports diarrhea has improved. Continues to have poor appetite. Encouraged p.o. intake Will order physical therapy for weakness and deconditioning 3. HTN -Blood pressures stable not eating what much will monitor blood pressure and hold losartan hydrochlorthiazide 4. RA -Continue hydroxychloroquine VTE prophylaxis: Lovenox twice daily CODE STATUS: Full code Dispo: 2 to 3 days pending improvement Maura, [id number] [phone].
[2020-08-27] MEDS: Dexamethasone 4 MG Tab PO SCH (15:21)
[2020-08-27] MEDS: Levofloxacin/Dextrose 5%-Water 750 MG in Premix Bag 1 BAG IV SCH (15:22)
[2020-08-27] MEDS: Pantoprazole 40 MG in Sodium Chloride 0.9% 10 ML IV SCH (17:45)
[2020-08-27] MEDS: REMDESIVIR 100 MG in Sodium Chloride 0.9% 100 ML IV SCH (17:55)
[2020-08-28 07:07] LABS: BLOOD UREA NITROGEN,BUN 24 mg/dL (7.0-18.0); CARBON DIOXIDE,CO2 26.2 mmol/L (21.0-32.0); CHLORIDE,CL 107 mmol/L (98-107); GLUCOSE RANDOM 143 mg/dL (74-106); POTASSIUM,K 4.1 mmol/L (3.5-5.1); SODIUM,NA 139 mmol/L (136-145)
[2020-08-28] MEDS: Enoxaparin 40 MG/0.4 ML Syringe SUBCUT SCH (08:18)
[2020-08-28] MEDS: Acetaminophen 500 MG Tab PO SCH (08:19)
[2020-08-28] MEDS: VITAMIN D2 PO SCH (08:21)
[2020-08-28] MEDS: Cyclosporine [Restasis Multidose] 1 DROP EYEBOTH SCH (08:21)
[2020-08-28] MEDS: CALCIUM CITRATE PO SCH (08:21)
[2020-08-28] MEDS ORDERED: REMDESIVIR 100 MG in Sodium Chloride 0.9% 100 ML IV SCH ×2 (09:47→16:00)
--- NOTE | 2020-08-28 12:00 | PCM.DCSUM1 ---
Discharge Summary - Hospital Course Brief History: This 70-year-old female with PMH of HTN and RA on hydroxychloroquine presented to the ER with shortness of breath fatigue disorientation and fever. She was diagnosed with Covid 19 on 08/20 and has been to the ER multiple times for worsening fatigue as well as shortness of breath. Her daughter in law who is a nurse practitioner woke her up this morning and felt she was quite disoriented and noted that her respirations were significantly elevated in the 40s. She brought her for further evaluation. K complains of fever, myalgias and extreme fatigue. Along with nonproductive cough. She denies any dyspnea but appears to be short of breath. She reports that she has been nauseated with any pills. But has been taking water okay. Reports that appetite has been fairly poor. She reports that she had a fever of 102.9 today at home. Reports having some nonbloody emesis and diarrhea. Since arriving in the ER she has become oriented and is much more alert. She has no known sick contacts at home. Denies any chest pain or palpitations. No abdominal pain. No dysuria or other urinary concerns. Denies any history of CAD, DM type II. She denies any recreational drug use, no tobacco use, and no alcohol use. In the ER white count noted at 8000 hemoglobin 14.3, platelet 215,000. 90% neutrophils. D-dimer elevated at 2.14 lactic acid 1.4 sodium noted at 133 BUN 20 creatinine 1.1. AST and ALT mildly elevated at 107 and 102 respectively UA negative blood cultures obtained. Head CT obtained which shows no acute intracranial process. CTA of the chest prominent mediastinal lymph nodes patchy ground glass opacities slightly alert worsened from previous CT on 08/23. Bibasilar consolidation has moderately worsened. In the ER she was given dexamethasone 6 mg IV along with Levaquin 750 mg. She was noted to be febrile tachycardic and hypoxic on arrival to the ER. She was treated with 1 L LR as well as Tylenol. She will be admitted inpatient for COVID-19 pneumonia acute hypoxic respiratory failure and CAP. Discussed treatment in depth with [id number], Maura. Diagnosis: Stroke: No - Discharge Data Discharge Date: 08/28/20 Discharge Disposition: Home, Self-Care 01 Condition: Stable - Referral to Home Health Primary Care Physician: Sameer Way MD - Discharge Diagnosis/Problem(s) (1) Acute respiratory failure with hypoxia SNOMED Code(s): 25250996, 417864983 ICD Code: J96.01 - ACUTE RESPIRATORY FAILURE WITH HYPOXIA Status: Acute Current Visit: Yes (2) HTN (hypertension) SNOMED Code(s): 05934740 ICD Code: I10 - ESSENTIAL (PRIMARY) HYPERTENSION Status: Acute Current Visit: Yes (3) Rheumatoid arthritis SNOMED Code(s): 49683173 ICD Code: M06.9 - RHEUMATOID ARTHRITIS, UNSPECIFIED Status: Acute Current Visit: Yes (4) COVID-19 virus infection SNOMED Code(s): 096706686 ICD Code: U07.1 - COVID-19 Status: Acute Current Visit: Yes (5) Sepsis due to undetermined organism SNOMED Code(s): 80681992 ICD Code: A41.9 - SEPSIS, UNSPECIFIED ORGANISM Status: Acute Current Visit: Yes - Patient Summary/Data Consults: Consultations 08/27/20 11:49 Consult to Physical Therapy [PT Evaluation and Treatment] [CONS] Routine Hospital Course: Admitting diagnosis acute hypoxic respiratory failure COVID-19 pneumonia CAP Discharge diagnoses acute hypoxic respiratory failure COVID-19 pneumonia CAP Other PMH RA Hypertension Tracie was admitted secondary to acute hypoxic respiratory failure and COVID-19 pneumonia. She was noted to be lethargic and confused at home. Noted to have saturations below 90% as home as well. She was admitted and started on remdesivir along with dexamethasone and placed on oxygen therapy. Chest x-ray appeared to have possible secondary bacterial infection so she was also started on Levaquin 750 IV daily. She has continued to improve. Today she is on room air satting 93 to 94%. With activity saturations are . She is feeling much more alert and herself. Denies any more confusion. She reports continued fatigue but feels better when she rests. Has been very diligent with her I-S and Acapella. Cough continues but has improved and it also continues to be nonproductive. She will be discharged home today with Levaquin for 4 more days. She will be encouraged to monitor her oxygen saturations at home. Her [id number] is a nurse practitioner and has means of monitoring her closely. She is to continue to quarantine for a total of 20 days from positive due to her being admitted in the hospital and severity of illness. She is to return to the ER or clinic if concerns should arise. Follow-up with her PCP and 7 to 10 days. - Patient Instructions Diet: Regular Diet as Tolerated, Drink 8-10+ Glasses/Day Activity: No Strenuous Activities, Rest and Relax Today Driving: Do Not Drive Showering/Bathing: May Shower Notify Provider of: Fever, Increased Pain, Swelling and Redness, Drainage, Nausea and/or Vomiting - Discharge Plan *PRESCRIPTION DRUG MONITORING PROGRAM REVIEWED*: Not Applicable *COPY OF PRESCRIPTION DRUG MONITORING REPORT IN PATIENT JEAN MARIE: Not Applicable Prescriptions/Med Rec: Albuterol/Ipratropium [Combivent Respimat] 1 puff INH Q4H PRN #1 inhaler PRN Reason: Dyspnea levoFLOXacin [Levaquin] 750 mg PO DAILY #3 tab Home Medications: Home Meds Acetaminophen 1 tab PO BID 08/25/20 [History] Calcium Citrate/Vitamin D2 [[place]-Citrate Plus Vitamin D Tab] 600 mg PO BID 08/25/20 [History] Hydroxychloroquine [Plaquenil] 400 mg PO DAILY 08/25/20 [History] atorvaSTATin [Lipitor] 10 mg PO DAILY 08/25/20 [History] cycloSPORINE [Restasis Multidose] 1 drop EYEBOTH BID 08/25/20 [History] Albuterol/Ipratropium [Combivent Respimat] 1 puff INH Q4H PRN #1 inhaler 08/28/20 [Rx] Losartan/Hydrochlorothiazide [Losartan-HCTZ 50-12.5 MG] 1 each PO DAILY #0 12/13 [Rx] levoFLOXacin [Levaquin] 750 mg PO DAILY #3 tab 08/28/20 [Rx] Oxygen Therapy Mode: Room Air Patient Handouts: Albuterol; Ipratropium respiratory inhalation spray (Combivent Respimat), COVID-19 Frequently Asked Questions, COVID-19: How to Protect Yourself and Others - [facility], Levofloxacin tablets Referrals: Sameer Way MD [Primary Care Provider] - 09/10/20 9:00 am - Discharge Summary/Plan Comment DC Time >30 min.: Yes - Patient Data Vitals - Most Recent: Last Vital Signs Temp 97.6 F 08/28/20 11:38 Pulse 63 08/28/20 11:38 Resp 18 08/28/20 11:38 BP 125/58 L 08/28/20 11:38 Pulse Ox 93 L 08/28/20 11:38 Weight - Most Recent: 69.264 kg I&O - Last 24 hours: Intake & Output 08/27/20 08/28/20 08/28/20 22:59 06:59 14:59 Intake Total 520 400 Output Total 600 400 Balance -80 0 Lab Results - Last 24 hrs: Laboratory Results - last 24 hr 08/28/20 08/28/20 Range/Units 06:30 06:30 WBC 7.71 (4.0-11.0) K/uL RBC 4.34 (4.30-5.90) M/uL Hgb 12.9 (12.0-16.0) g/dL Hct 39.7 (36.0-46.0) % MCV 91.5 (80.0-98.0) fL MCH 29.7 (27.0-32.0) pg MCHC 32.5 (31.0-37.0) g/dL RDW Std Deviation 45.4 (28.0-62.0) fl RDW Coeff of Sue 14 (11.0-15.0) % Plt Count 339 (150-400) K/uL MPV 10.80 (7.40-12.00) fL Add Manual Diff YES Neutrophils % (Manual) 73 (48.0-80.0) % Band Neutrophils % 4 % Lymphocytes % (Manual) 16 (16.0-40.0) % Monocytes % (Manual) 7 (0.0-15.0) % Nucleated RBC % 0.0 /100WBC Absolute Seg Neuts 5.6 (1.4-5.7) Band Neutrophils # 0.3 Lymphocytes # (Manual) 1.2 (0.6-2.4) Monocytes # (Manual) 0.5 (0.0-0.8) Nucleated RBCs # 0 K/uL Sodium 139 (136-145) mmol/L Potassium 4.1 (3.5-5.1) mmol/L Chloride 107 (98-107) mmol/L Carbon Dioxide 26.2 (21.0-32.0) mmol/L BUN 24 H (7.0-18.0) mg/dL Creatinine 0.8 (0.6-1.0) mg/dL Est Cr Clr Drug Dosing 50.27 mL/min Estimated GFR (MDRD) > 60.0 ml/min Glucose 143 H (74-106) mg/dL Calcium 8.4 L (8.5-10.1) mg/dL Magnesium 2.5 H (1.8-2.4) mg/dL Total Bilirubin 0.4 (0.2-1.0) mg/dL AST 55 H (15-37) IU/L ALT 72 H (14-63) IU/L Alkaline Phosphatase 51 (46-116) U/L Total Protein 6.1 L (6.4-8.2) g/dL Albumin 2.3 L (3.4-5.0) g/dL Globulin 3.8 (2.6-4.0) g/dL Albumin/Globulin Ratio 0.6 L (0.9-1.6) PIPE Results - Last 24 hrs: Microbiology 08/25/20 11:50 Aerobic Blood Culture - Preliminary Blood - Venous NO GROWTH AFTER 3 DAYS Anaerobic Blood Culture - Preliminary NO GROWTH AFTER 3 DAYS 08/25/20 12:25 Aerobic Blood Culture - Preliminary Blood - Venous - Lab Draw NO GROWTH AFTER 2 DAYS Anaerobic Blood Culture - Final Med Orders - Current: Current Medications Acetaminophen (Tylenol) 650 mg PO Q4H PRN PRN Reason: Pain (Mild 1-3)/fever Acetaminophen (Tylenol) 650 mg RECTAL Q4H PRN PRN Reason: Pain (mild 1-3) Acetaminophen (Tylenol Extra Strength) 500 mg PO BID [facility] Last Admin: 08/28/20 08:19 Dose: Not Given Documented by: Albuterol/Ipratropium (Combivent Respimat) 0 gm INH Q4H PRN PRN Reason: Dyspnea Benzonatate (Tessalon Perles) 100 mg PO TID PRN PRN Reason: Cough Dexamethasone (Dexamethasone) 6 mg PO DAILY@1500 [facility] Last Admin: 08/27/20 15:21 Dose: 6 mg Documented by: Enoxaparin Sodium (Lovenox) 40 mg SUBCUT Q12HR [facility] Last Admin: 08/28/20 08:18 Dose: 40 mg Documented by: Pantoprazole Sodium 40 mg/ (Sodium Chloride) 10 mls @ 300 mls/hr IV Q24H [facility] Last Admin: 08/27/20 17:45 Dose: 300 mls/hr Documented by: Levofloxacin/Dextrose 750 mg/ (Premix) 150 mls @ 100 mls/hr IV Q24H [facility] Last Admin: 08/27/20 15:22 Dose: 100 mls/hr Documented by: Remdesivir 100 mg/ Sodium (Chloride) 100 mls @ 100 mls/hr IV Q24H [facility] Stop: 08/29/20 16:59 Ondansetron HCl (Zofran) 4 mg IVPUSH Q4H PRN PRN Reason: Nausea Calcium Citrate/Vitamin D2 [[place]- Citrate Plus Vitamin D Ta 1 each PO BID [facility] Last Admin: 08/28/20 08:21 Dose: Not Given Documented by: Cyclosporine [ Restasis Multidose] 1 Drop 1 each EYEBOTH BID [facility] Last Admin: 08/28/20 08:21 Dose: Not Given Documented by: Hydroxychloroquine (200 Mg Tab) 2 each PO DAILY [facility] Last Admin: 08/28/20 08:21 Dose: 2 each Documented by: Sodium Chloride (Saline Flush) 2.5 ml FLUSH ASDIRECTED PRN PRN Reason: Keep Vein Open Discontinued Medications Acetaminophen (Tylenol) 650 mg RECTAL NOW ONE Stop: 08/25/20 12:07 Last Admin: 08/25/20 12:31 Dose: 650 mg Documented by: Dexamethasone (Decadron) 6 mg IVPUSH ONETIME ONE Stop: 08/25/20 15:45 Last Admin: 08/25/20 16:50 Dose: 6 mg Documented by: Dexamethasone (Decadron) 6 mg IVPUSH Q24H [facility] Hydroxychloroquine Sulfate (Plaquenil) 400 mg PO DAILY [facility] Last Admin: 08/27/20 09:05 Dose: 400 mg Documented by: Lactated Ringer's (Ringers, Lactated) 1,000 mls @ 999 mls/hr IV .BOLUS ONE Stop: 08/25/20 11:55 Last Admin: 08/25/20 11:55 Dose: 999 mls/hr Documented by: Levofloxacin/Dextrose 750 mg/ (Premix) 150 mls @ 100 mls/hr IV ONETIME ONE Stop: 08/25/20 16:01 Last Admin: 08/25/20 14:52 Dose: 100 mls/hr Documented by: Remdesivir 100 mg/ Sodium (Chloride) 100 mls @ 100 mls/hr IV Q24H [facility] Stop: 08/29/20 16:59 Last Admin: 08/27/20 17:55 Dose: 100 mls/hr Documented by: Remdesivir 200 mg/ Sodium (Chloride) 250 mls @ 250 mls/hr IV ONETIME ONE Stop: 08/25/20 17:59 Last Admin: 08/25/20 17:16 Dose: 250 mls/hr Documented by: Remdesivir 100 mg/ Sodium (Chloride) 100 mls @ 100 mls/hr IV Q24H [facility] Stop: 08/29/20 16:59 Last Admin: 08/28/20 09:56 Dose: Not Given Documented by: Influenza Virus Vaccine (Fluzone High-Dose Quad ) 240 mcg IM .ONCE ONE Stop: 08/26/20 09:01 Last Admin: 08/27/20 19:45 Dose: Not Given Documented by: Iopamidol (Isovue Multipack-370 (76%)) 75 ml IVPUSH ONETIME STA Stop: 08/25/20 18:31 Last Admin: 08/25/20 18:31 Dose: 75 ml Documented by: Sodium Chloride (Saline Flush) 10 ml FLUSH ASDIRECTED PRN PRN Reason: Keep Vein Open Last Admin: 08/25/20 11:55 Dose: 10 ml Documented by: Sodium Chloride (Saline Flush) 2.5 ml FLUSH ASDIRECTED PRN PRN Reason: Keep Vein Open Last Admin: 08/25/20 11:56 Dose: 2.5 ml Documented by: - Exam Quality Assessment: Reports: DVT Prophylaxis. Denies: Supplemental Oxygen General: Reports: Alert, Oriented, Cooperative, No Acute Distress Lungs: Reports: Clear to Auscultation, Normal Respiratory Effort Cardiovascular: Reports: Regular Rate, Regular Rhythm GI/Abdominal Exam: Normal Bowel Sounds, Soft, Non-Tender Extremities: Normal Inspection, Normal Range of Motion Wound/Incisions: Reports: Healing Well Neurological: Reports: No New Focal Deficit Psy/Mental Status: Reports: Alert, Normal Affect, Normal Mood
[2020-08-28] MEDS ORDERED: FLU Vacc QV2020-21(65YR UP)/PF 240 MCG/0.7 ML Syringe IM ONE (14:15)
[2020-08-28] MEDS ORDERED: Levofloxacin 250 MG Tab PO SCH (15:00)
[2020-08-28] MEDS: Dexamethasone 4 MG Tab PO SCH (15:09)
[2020-08-28] MEDS ORDERED: Pantoprazole 40 MG Tab.CR PO SCH (16:00)
== END 2020-08-28 17:15 | disposition home or self-care (01) | DRG 871 ==
LOC: MW.ED 10:24 → MW.MS 15:03
PROVIDERS: ADMIT Student in an Organized Health Care Education/Training Program; ATTEND Student in an Organized Health Care Education/Training Program
PROC: XW033E5 Introduction of Remdesivir Anti-infective into Peripheral Vein, Percutaneous Approach, New Technology Group 5 (ICD-10-PCS; principal; 2020-08-25)
DX: A41.9 Sepsis, unspecified organism (principal); U07.1 COVID-19; Z86.010 Personal history of colon polyps; J12.89 Other viral pneumonia; J96.01 Acute respiratory failure with hypoxia; R06.03 Acute respiratory distress; M06.9 Rheumatoid arthritis, unspecified; I10 Essential (primary) hypertension; Z90.710 Acquired absence of both cervix and uterus
CPT/HCPCS: 70450; 71046; 71275; 80053; 81001; 83605; 83690; 84484; 85025; 85379; 85610; 87040 ×2; 93005; 96374; 99285; A9270; J1956; J7120; 36415; 83735; 90662; 93010; 97161-GP; 99223; 99232; 99239; 99291; C9113; G0008; J1100; J1650; J7050; J8540; Q9967

== ENCOUNTER 2021-08-04 08:08 | Day surgery (SDC) | payer MEDICARE, OTHER ==
[~2021-08-04 08:08] MED LIST: Lactated Ringers 1,000 ML IV SCH; Sodium Chloride 0.9% 10 ML Syringe FLUSH PRN; Sodium Chloride 0.9% 2.5 ML Syringe FLUSH PRN; Sodium Chloride 0.9% 20 ML SDV IV PRN
--- NOTE | 2021-08-04 08:55 | PCM.PREANE ---
Preanesthetic Assessment - Anesthesia/Transfusion/Family Hx Anesthesia History: Prior Anesthesia Without Reaction Transfusion History: No Prior Transfusion(s) - Review of Systems General: No Symptoms Pulmonary: No Symptoms Cardiovascular: No Symptoms Gastrointestinal: No Symptoms Neurological: No Symptoms Other: Reports: None - Physical Assessment NPO Status Date: 08/04/21 NPO Status Time: 00:00 Vital Signs: Last Vital Signs Temp 97.0 F 08/04/21 08:19 Pulse 88 08/04/21 08:19 Resp 16 08/04/21 08:19 BP 176/78 H 08/04/21 08:19 Pulse Ox 99 08/04/21 08:19 Height: 5 ft 2 in Weight: 155 lb ASA Class: 2 Mental Status: Alert & Oriented x3 Airway Class: Mallampati = 2 Dentition: Reports: Normal Dentition Thyro-Mental Finger Breadths: 3 Mouth Opening Finger Breadths: 3 ROM/Head Extension: Full Lungs: Clear to Auscultation, Normal Respiratory Effort Cardiovascular: Regular Rate, Regular Rhythm - Allergies Allergies/Adverse Reactions: Allergies Allergy/AdvReac Type Severity Reaction Status Date / Time naproxen [From Naprosyn] Allergy Tachycardia Verified 07/30/21 10:07 propoxyphene [From Darvon] Allergy Anxiety Verified 07/30/21 10:07 - Acknowledgements Anesthesia Type Planned: General Anesthesia Pt an Appropriate Candidate for the Planned Anesthesia: Yes Alternatives and Risks of Anesthesia Discussed w Pt/Guardian: Yes Pt/Guardian Understands and Agrees with Anesthesia Plan: Yes PreAnesthesia Questionnaire HEENT History: Reports: Cataract, Other (See Below) Other HEENT History: very dry eyes Cardiovascular History: Reports: High Cholesterol, Hypertension Respiratory History: Reports: None Gastrointestinal History: Reports: Colon Polyp Genitourinary History: Reports: None CASTINGS TRIMMER History: Reports: Other OB/BYN History: hysterectomy Musculoskeletal History: Reports: Osteoarthritis, Osteoporosis Neurological History: Reports: None Psychiatric History: Reports: None Endocrine/Metabolic History: Reports: None Hematologic History: Reports: None Immunologic History: Reports: None Oncologic (Cancer) History: Reports: None Dermatologic History: Reports: None - Infectious Disease History Infectious Disease History: Reports: Chicken Pox, Novel Coronavirus - Past Surgical History Head Surgeries/Procedures: Reports: None HEENT Surgical History: Reports: Cataract Surgery, Tonsillectomy Cardiovascular Surgical History: Reports: None Respiratory Surgical History: Reports: None GI Surgical History: Reports: Colonoscopy Female Surgical History: Reports: Hysterectomy, Salpingo-Oophorectomy Other Female Surgeries/Procedures: some type of bladder surgery Neurological Surgical History: Reports: None Musculoskeletal Surgical History: Reports: ORIF Other Musculoskeletal Surgeries/Procedures:: ORIF of finger- hardware removed - SUBSTANCE USE Tobacco Use Status *Q: Never Tobacco User Recreational Drug Use History: No - HOME MEDS Home Medications: Home Meds Acetaminophen 500 mg PO BID PRN 08/25/20 [History] Hydroxychloroquine [Plaquenil] 300 mg PO DAILY 08/25/20 [History] atorvaSTATin [Lipitor] 10 mg PO DAILY 08/25/20 [History] Losartan/Hydrochlorothiazide [Losartan-HCTZ 50-12.5 MG] 1 each PO DAILY #0 08/28/20 [Rx] Calcium Carbonate/Vitamin D3 [Calcium 500-Vit D3 200 Tablet] 1 tab PO BID 07/30/21 [History] cycloSPORINE [Restasis Multidose] 1 drop EYEBOTH BID 07/30/21 [History] estradioL [Estrace 0.01% Vaginal Crm] 0.5 - 1 gm VAG ASDIRECTED 07/30/21 [History] - CURRENT (IN HOUSE) MEDS Current Meds: Current Medications Lactated Ringer's (Ringers, Lactated) 1,000 mls @ 125 mls/hr IV ASDIRECTED [facility] Last Admin: 08/04/21 08:22 Dose: 125 mls/hr Documented by: Sodium Chloride (Sodium Chloride 0.9% 10 Ml Syringe) 10 ml FLUSH ASDIRECTED PRN PRN Reason: Keep Vein Open Sodium Chloride (Sodium Chloride 0.9% 2.5 Ml Syringe) 2.5 ml FLUSH ASDIRECTED PRN PRN Reason: Keep Vein Open Sodium Chloride (Sodium Chloride 0.9% 10 Ml Syringe) 10 ml FLUSH ASDIRECTED PRN PRN Reason: Keep Vein Open Sodium Chloride (Sodium Chloride 0.9% 2.5 Ml Syringe) 2.5 ml FLUSH ASDIRECTED PRN PRN Reason: Keep Vein Open Sodium Chloride (Sodium Chloride 0.9% 20 Ml Sdv) 10 ml IV ASDIRECTED PRN PRN Reason: IV Use
[2021-08-04] MEDS ORDERED: fentaNYL 100 MCG/2 ML SDV ONE (09:38)
[2021-08-04] MEDS ORDERED: Propofol 200 MG/20 ML SDV ONE (09:39)
--- NOTE | 2021-08-04 10:42 | PCM.POSTAN ---
POST ANESTHESIA ASSESSMENT - MENTAL STATUS Mental Status: Alert, Oriented - VITAL SIGNS Vital Signs: Last Vital Signs Temp 36.1 C 08/04/21 08:19 Pulse 88 08/04/21 08:19 Resp 16 08/04/21 08:19 BP 176/78 H 08/04/21 08:19 Pulse Ox 99 08/04/21 08:19 - RESPIRATORY Respiratory Status: Respiratory Rate WNL, Airway Patent, O2 Saturation Stable - CARDIOVASCULAR CV Status: Pulse Rate WNL, Blood Pressure Stable - GASTROINTESTINAL GI Status: No Symptoms - POST OP HYDRATION Hydration Status: Adequate & Stable
--- NOTE | 2021-08-04 10:45 | PCM48HPAN ---
Post Anesthesia Note - EVALUATION WITHIN 48HRS OF ANESTHETIC Vital Signs in Normal Range: Yes Patient Participated in Evaluation: Yes Respiratory Function Stable: Yes Airway Patent: Yes Cardiovascular Function Stable: Yes Hydration Status Stable: Yes Pain Control Satisfactory: Yes Nausea and Vomiting Control Satisfactory: Yes Mental Status Recovered: Yes Vital Signs: Last Vital Signs Temp 36.1 C 08/04/21 08:19 Pulse 75 08/04/21 10:41 Resp 16 08/04/21 10:41 BP 125/42 L 08/04/21 10:41 Pulse Ox 98 08/04/21 10:41
--- NOTE | 2021-08-04 15:55 | PCM.OPNOTE ---
- General Post-Op/Procedure Note Date of Surgery/Procedure: 08/04/21 Operative Procedure(s): Screening colonoscopy with polypectomy Findings: 5 cecal polyps, 1 transverse colon polyp Pre Op Diagnosis: History of colon polyps Post-Op Diagnosis: Cecal polyp x 5, transverse colon polyp x 1 Anesthesia Technique: MAC Primary Surgeon: Luisa Alvarado Condition: Good Free Text/Narrative:: Intake & Output 08/04/21 08/04/21 08/04/21 06:59 14:59 22:59 Intake Total 700 Balance 700
--- NOTE | 2021-08-05 23:35 | OR ---
SURGEON: LUISA ALVARADO MD DATE OF PROCEDURE: 08/04/2021 PREOPERATIVE DIAGNOSIS: History of colon polyps. POSTOPERATIVE DIAGNOSES: Cecal polyps x5, transverse colon polyp x1. PROCEDURE PERFORMED: Screening colonoscopy with polypectomy. PRIMARY SURGEON: Luisa Alvarado MD ANESTHESIA: MAC. INSTRUMENT USED: Olympus colonoscope. EXTENT OF EXAM: To the cecum. PREPARATION: Good. LIMITATIONS: None. INDICATIONS FOR EXAMINATION: The patient is a 71-year-old female who has a history of colon polyps. It was time for a repeat colonoscopy. I explained the procedure, expected perioperative course, and the risks. She verbalized understanding and wishes to proceed. PROCEDURE IN DETAIL: The patient was brought to the endoscopy suite and placed in left lateral decubitus position. A time-out was completed verifying the patient's name, age, date of , allergies, and procedure to be performed. General anesthesia was induced and continuous oxygen was provided via face mask throughout the procedure. After adequate sedation was achieved, a digital rectal exam was performed. This exam was within normal limits. A well-lubricated colonoscope was inserted in the rectum and advanced under direct visualization to the level of the cecum. The cecum was identified by both visual and anatomic landmarks. A photograph was taken of the cecal cap as well as with the scope retroflexed within the cecum. The scope was then fully withdrawn while examining the color, texture, anatomy, and integrity of mucosa from the cecum to the anal canal. The patient was noted to have multiple polyps within the cecal cap. These were varied in size, but all removed in piecemeal fashion using a cold biopsy forceps. The patient also had a small sessile polyp in the transverse colon which was removed in similar fashion. The scope was then brought into the rectum and retroflexed to allow visualization of the anal canal opening. This appeared normal, and a photograph was taken. The scope was straightened out and fully withdrawn. The cecum to anus time was 27 minutes. The patient tolerated the procedure well and was transferred to the PACU in stable condition. ENDOSCOPIC DIAGNOSES: Cecal polyps x5, transverse colon polyp x1. RECOMMENDATION: Follow up in clinic in 2 weeks. PATRICE / LEONEL /[id number]
== END 2021-08-04 11:05 | disposition home or self-care (01) ==
LOC: MW.SDS 08:08
PROVIDERS: ATTEND Surgery
DX: D12.0 Benign neoplasm of cecum (principal); D12.3 Benign neoplasm of transverse colon; Z88.8 Allergy status to other drugs, medicaments and biological substances; Z79.899 Other long term (current) drug therapy; Z98.890 Other specified postprocedural states
CPT/HCPCS: 45380; J2704; J3010; J7120; 00812; 99100

== ENCOUNTER 2021-09-25 09:54 | Emergency (ER) | payer MEDICARE, OTHER ==
--- NOTE | 2021-09-25 10:05 | EDM.PDOC ---
<Charles Cummins - Last Filed: 09/25/21 10:49> ED HPI GENERAL MEDICAL PROBLEM - General Stated Complaint: FELL OFF CHAIR, HIT HEAD Time Seen by Provider: 09/25/21 10:01 - Related Data Allergies Allergy/AdvReac Type Severity Reaction Status Date / Time naproxen [From Naprosyn] Allergy Tachycardia Verified 09/25/21 09:58 propoxyphene [From Darvon] Allergy Anxiety Verified 09/25/21 09:58 Home Meds: Home Meds Acetaminophen 500 mg PO BID PRN 08/25/20 [History] Hydroxychloroquine [Plaquenil] 200 mg PO DAILY 08/25/20 [History] atorvaSTATin [Lipitor] 10 mg PO DAILY 08/25/20 [History] Losartan/Hydrochlorothiazide [Losartan-HCTZ 50-12.5 MG] 1 each PO DAILY #0 08/28/20 [Rx] Calcium Carbonate/Vitamin D3 [Calcium 500-Vit D3 200 Tablet] 1 tab PO BID 07/30/21 [History] cycloSPORINE [Restasis Multidose] 1 drop EYEBOTH BID 07/30/21 [History] estradioL [Estrace 0.01% Vaginal Crm] 0.5 - 1 gm VAG ASDIRECTED 07/30/21 [History] #1 Interpretation EKG Interpretation Comments: EKG done 09/25/2021 at 1037 hrs. shows sinus rhythm with heart rate 78 UT 143 QT 433 axis 31 the patient may have left atrial enlargement. When compared to 08/23/2020 no significant change impression no acute injury Departure - Departure Disposition: Home, Self-Care 01 Clinical Impression: Contusion Qualifiers: Encounter type: initial encounter Contusion area: thoracic wall Front or back of thoracic wall: front Thoracic wall location detail: left Qualified Code(s): S20.212A - Contusion of left front wall of thorax, initial encounter - Discharge Information Instructions: Contusion, [id number] Referrals: Sameer Way MD [Primary Care Provider] - Forms: ED Department Discharge Additional Instructions: The following information is given to patients seen in the emergency department who are being discharged to home. This information is to outline your options for follow-up care. We provide all patients seen in our emergency department with a follow-up referral. The need for follow-up, as well as the timing and circumstances, are variable d epending upon the specifics of your emergency department visit. If you don't have a primary care physician on staff, we will provide you with a referral. We always advise you to contact your personal physician following an emergency department visit to inform them of the circumstance of the visit and for follow-up with them and/or the need for any referrals to a consulting specialist. The emergency department will also refer you to a specialist when appropriate. This referral assures that you have the opportunity for follow-up care with a specialist. All of these measure are taken in an effort to provide you with optimal care, which includes your follow-up. Under all circumstances we always encourage you to contact your private physician who remains a resource for coordinating your care. When calling for follow-up care, please make the office aware that this follow-up is from your recent emergency room visit. If for any reason you are refused follow-up, please contact the [facility] Emergency Department at and asked to speak to the emergency department charge nurse. [facility] [address] [place], [place] [id number] [place] [id number] Plan: 1. You were evaluated today on an emergent basis. Your plaint of a frontal headache and left rib pain after falling off of a chair on 09/18/2021 was evaluated with an examination, blood work, chest x-ray and a head CT. All of which were normal. You do not have a head bleed nor any fractured ribs. Your pain in your left side is from a contusion and will take time to resolve. I want you to ensure that you are taking nice deep breaths and use Motrin for pain control as you state you can take this safely. Use 400 to 600 mg every 6-8 hours for your pain. Maximum Motrin dose is 2000 mg/day. Please ensure he did not go over this dose. You were to have worsening of your symptoms or become dizzy or unable to walk or notice a weakness on either side of your body please return to the emergency department. 2. You can alternate Tylenol and ibuprofen as needed for pain and fever management. 3. We encourage you to follow up with your primary care provider and/or recommended specialist in the next few days for re-evaluation and further care/management. 4. If your symptoms should worsen, new symptoms develop or any of the signs and symptoms we discussed should arise please return to the emergency room or call 911 (if needed). <ChristinaNelda - Last Filed: 09/26/21 11:16> ED HPI GENERAL MEDICAL PROBLEM - General Source of Information: Reports: Patient History Limitations: Reports: No Limitations - History of Present Illness INITIAL COMMENTS - FREE TEXT/NARRATIVE: HISTORY AND PHYSICAL: History of present illness: The patient is a 71-year-old female who presents to the emergency department with complaints of a frontal headache and left lateral rib pain after falling off of a chair on 09/18/2021. At the time of the fall the patient struck her posterior head but she did not have any LOC, no vomiting, and had normal behavi or. The patient states that she has been having trouble sleeping due to her left lateral rib pain. She states she has been using ice on and off along with acetaminophen 500 mg several times a day to control the pain. The patient states that she woke up this morning with a frontal headache and after talking with her family felt that she should come into the emergency department to be seen. Patient denies any fever, chills, change in vision, syncope or near syncope. Denies any chest pain, back pain, shortness of breath or cough. Denies any abdominal pain, nausea, vomiting, diarrhea, constipation or dysuria. Has not noted any blood in urine or stool. Patient has been eating and drinking appropriately. Review of systems: As per history of present illness and below otherwise all systems reviewed and negative. Past medical history: As per history of present illness and as reviewed below otherwise noncontributory. Surgical history: As per history of present illness and as reviewed below otherwise noncontributory. Social history: See social history for further information Family history: As per history of present illness and as reviewed below otherwise noncontributory. Physical exam: General: Well developed and well nourished. Alert and orientated x 3. Nontoxic in appearance and in no acute distress. Vital signs are stable and have been reviewed by me. Nursing notes were reviewed. HEENT: Atraumatic, normocephalic, pupils equal and reactive bilaterally, negative for conjunctival pallor or scleral icterus, mucous membranes moist, TMs normal bilaterally, throat clear, neck supple, nontender, trachea midline. No drooling or trismus noted. No meningeal signs. No hot potato voice noted. Lungs: Clear to auscultation bilaterally. No wheezes, rales, or rhonchi. Chest nontender. Normal work of breathing, no accessory muscles used. Heart: S1S2, regular rate and rhythm without overt murmur, gallops, or rubs. No JVD. No peripheral edema Abdomen: Soft, nondistended, nontender. Normoactive bowel sounds. Negative for masses or costovertebral tenderness. Skin: Intact, warm, dry. No lesions or rashes noted. Hematologic: No petechiae or purpra. Mucosa appropriate color and normal nail bed color and refill. Extremities: Atraumatic, moves all extremities per self without difficulty or deficits, negative for cords or calf pain. Neurovascular unremarkable. Neuro: Awake, alert, oriented. Cranial nerves II through XII unremarkable. Cerebellum unremarkable. Motor and sensory unremarkable throughout. Exam nonfocal. Psychiatric: Mood and affect are appropriate. Normal thought process. Answering questions appropriately. Notes: *This patient was seen and evaluated during the 2019 SARS-CoV-2 novel coronavirus pandemic period. Community viral transmission is ongoing at time of this encounter and the emergency department is operating under pandemic response procedures. As stated above the patient is a 71-year-old female who presents to the emergency department after falling off of the chair on 09/18/2021 when attempting to clean her microwave. At the time the patient did not have any loss of consciousness nor any severe pain. But over the course of the days she has had some left sided rib pain that she has been using Tylenol and ice on. She states that she is not sleeping well and when she woke up this morning she had a frontal headache. After talking to her family she felt like she should come into the emergency department. Her neuro exam is benign. She is actually nontender in her left lateral rib area. She states that it hurts to take a deep breath or move. We will get a head CT, EKG, blood work, and a chest x-ray. The patient is agreeable with this plan. The patient's CBC, CMP, troponin and EKG were unremarkable. The patient's chest x-ray Impression: No acute cardiopulmonary process. Head CT: IMPRESSION: 1. There is no acute intracranial hemorrhage, shift of midline structures, or mass effect. 2. Skullbase/calvaria are intact. 3. No hyperdense MCA sign. I informed the patient of her test results and she could use Motrin 400 to 600 mg every 6-8 hours for her pain. The patient and her daughter are agreeable with this discharge plan. I have talked with the patient about today's findings, in addition to providing specific details for plan of care. Reassessment at the time of disposition demonstrates that the patient is in no acute distress. The patient is stable for discharge, counseling was provided and we discussed in great detail signs and symptoms that would prompt them to return to the Emergency Department. M edication, follow up and supportive care measures were reviewed and discussed. Voices understanding and is agreeable to plan of care. Denies any further questions or concerns at this time. Diagnostics: CBC, CMP, troponin, EKG, chest x-ray, head CT Impression: Contusion Plan: 1. You were evaluated today on an emergent basis. Your plaint of a frontal headache and left rib pain after falling off of a chair on 09/18/2021 was evaluated with an examination, blood work, chest x-ray and a head CT. All of which were normal. You do not have a head bleed nor any fractured ribs. Your pain in your left side is from a contusion and will take time to resolve. I want you to ensure that you are taking nice deep breaths and use Motrin for pain control as you state you can take this safely. Use 400 to 600 mg every 6-8 hours for your pain. Maximum Motrin dose is 2000 mg/day. Please ensure he did not go over this dose. You were to have worsening of your symptoms or become dizzy or unable to walk or notice a weakness on either side of your body please return to the emergency department. 2. You can alternate Tylenol and ibuprofen as needed for pain and fever management. 3. We encourage you to follow up with your primary care provider and/or recommended specialist in the next few days for re-evaluation and further care/management. 4. If your symptoms should worsen, new symptoms develop or any of the signs and symptoms we discussed should arise please return to the emergency room or call 911 (if needed). Definitive disposition and diagnosis as appropriate pending reevaluation and rev iew of above. Back/ribs Pain Score (Numeric/FACES): 6 Past Medical History HEENT History: Reports: Cataract, Other (See Below) Other HEENT History: very dry eyes Cardiovascular History: Reports: High Cholesterol, Hypertension Respiratory History: Reports: None Gastrointestinal History: Reports: Colon Polyp Genitourinary History: Reports: None LABEL PASTER History: Reports: Other LABEL PASTER History: hysterectomy Musculoskeletal History: Reports: Osteoarthritis, Osteoporosis Neurological History: Reports: None Psychiatric History: Reports: None Endocrine/Metabolic History: Reports: None Hematologic History: Reports: None Immunologic History: Reports: None Oncologic (Cancer) History: Reports: None Dermatologic History: Reports: None - Infectious Disease History Infectious Disease History: Reports: Chicken Pox, Novel Coronavirus - Past Surgical History Head Surgeries/Procedures: Reports: None HEENT Surgical History: Reports: Cataract Surgery, Tonsillectomy Cardiovascular Surgical History: Reports: None Respiratory Surgical History: Reports: None GI Surgical History: Reports: Colonoscopy Female Surgical History: Reports: Hysterectomy, Salpingo-Oophorectomy Other Female Surgeries/Procedures: some type of bladder surgery Neurological Surgical History: Reports: None Musculoskeletal Surgical History: Reports: ORIF Other Musculoskeletal Surgeries/Procedures:: ORIF of finger- hardware removed Social & Family History - Family History Family Medical History: No Pertinent Family History - Caffeine Use Caffeine Use: Reports: Other Caffeine Use Comment: Occasionally drink ED ROS GENERAL - Review of Systems Review Of Systems: Comprehensive ROS is negative, except as noted in HPI. ED EXAM, GENERAL - Physical Exam Exam: See Below (See dictation) Course - Vital Signs Last Recorded V/S: Last Vital Signs Temp 98.4 F 09/25/21 12:59 Pulse 71 09/25/21 12:59 Resp 18 09/25/21 12:59 BP 135/56 L 09/25/21 12:59 Pulse Ox 95 09/25/21 12:59 - Orders/Labs/Meds Labs: Laboratory Tests 09/25/21 09/25/21 Range/Units 10:33 10:33 WBC 8.23 (4.0-11.0) K/uL RBC 4.76 (4.30-5.90) M/uL Hgb 15.0 (12.0-16.0) g/dL Hct 44.0 (36.0-46.0) % MCV 92.4 (80.0-98.0) fL MCH 31.5 (27.0-32.0) pg MCHC 34.1 (31.0-37.0) g/dL RDW Std Deviation 45.4 (28.0-62.0) fl RDW Coeff of Sue 13 (11.0-15.0) % Plt Count 247 (150-400) K/uL MPV 10.10 (7.40-12.00) fL Neut % (Auto) 83.9 H (48.0-80.0) % Lymph % (Auto) 9.2 L (16.0-40.0) % [place] % (Auto) 6.3 (0.0-15.0) % Eos % (Auto) 0.5 (0.0-7.0) % Baso % (Auto) 0.1 (0.0-1.5) % Neut # (Auto) 6.9 H (1.4-5.7) K/uL Lymph # (Auto) 0.8 (0.6-2.4) K/uL [place] # (Auto) 0.5 (0.0-0.8) K/uL Eos # (Auto) 0.0 (0.0-0.7) K/uL Baso # (Auto) 0.0 (0.0-0.1) K/uL Nucleated RBC % 0.0 /100WBC Nucleated RBCs # 0 K/uL Sodium 138 (136-145) mmol/L Potassium 3.9 (3.5-5.1) mmol/L Chloride 101 (98-107) mmol/L Carbon Dioxide 28.6 (21.0-32.0) mmol/L BUN 19 H (7.0-18.0) mg/dL Creatinine 1.1 H (0.6-1.0) mg/dL Est Cr Clr Drug Dosing 34.37 mL/min Estimated GFR (MDRD) 48.7 ml/min Glucose 108 H (74-106) mg/dL Calcium 9.2 (8.5-10.1) mg/dL Total Bilirubin 0.6 (0.2-1.0) mg/dL AST 23 (15-37) IU/L ALT 28 (14-63) IU/L Alkaline Phosphatase 85 (46-116) U/L Troponin I < 0.050 (0.000-0.056) ng/mL Total Protein 7.6 (6.4-8.2) g/dL Albumin 3.6 (3.4-5.0) g/dL Globulin 4.0 (2.6-4.0) g/dL Albumin/Globulin Ratio 0.9 (0.9-1.6) Meds: Medications Discontinued Medications Generic Name Dose Route Start Last Admin Trade Name Freq PRN Reason Stop Dose Admin Ketorolac Tromethamine 60 mg 09/25/21 12:01 09/25/21 12:13 Ketorolac 60 Mg/2 Ml Sdv IM 09/25/21 12:02 60 mg ONETIME ONE Administration Departure - Departure Time of Disposition: 12:04 Condition: Good - Discharge Information *PRESCRIPTION DRUG MONITORING PROGRAM REVIEWED*: Not Applicable *COPY OF PRESCRIPTION DRUG MONITORING REPORT IN PATIENT JEAN MARIE: Not Applicable
[2021-09-25 11:20] LABS: BLOOD UREA NITROGEN,BUN 19 mg/dL (7.0-18.0); CARBON DIOXIDE,CO2 28.6 mmol/L (21.0-32.0); CHLORIDE,CL 101 mmol/L (98-107); GLUCOSE RANDOM 108 mg/dL (74-106); POTASSIUM,K 3.9 mmol/L (3.5-5.1); SODIUM,NA 138 mmol/L (136-145)
--- NOTE | 2021-09-25 11:33 | CR ---
Indication: Fall. Pain. Technique: PA and lateral views the chest. Comparison: August 25, 2020. Findings: The heart is normal in size. The lungs are clear. No infiltrate, pleural effusion, or pneumothorax is identified. Impression: No acute cardiopulmonary process Dictated by Jenelle Morris MD @ 09/25/2021 11:32:25 AM (Electronically Signed)
--- NOTE | 2021-09-25 11:56 | CT ---
HISTORY: Fall. COMPARISON: 08/25/2020. TECHNIQUE: CT of the brain. No intravenous contrast. Coronal/sagittal reconstruction images. FINDINGS: These images demonstrate no evidence for acute intracranial hemorrhage. No shift of midline structures. No mass effect. Basilar cisterns are patent. No abnormal extra-axial fluid collections. No acute loss of brown-white matter differentiation is seen. Mastoid air cells of both temporal bones are clear. Pterygoid plates are intact. Mild mucosal thickening in the maxillary antra. The skullbase and calvaria are intact. IMPRESSION: 1. There is no acute intracranial hemorrhage, shift of midline structures, or mass effect. 2. Skullbase/calvaria are intact. 3. No hyperdense MCA sign. Please note that all CT scans at this facility use dose modulation, iterative reconstruction, and/or weight-based dosing when appropriate to reduce radiation dose to as low as reasonably achievable. Dictated by Jacques Cordero MD @ 09/25/2021 11:55:59 AM (Electronically Signed)
[2021-09-25] MEDS ORDERED: Ketorolac 60 MG/2 ML SDV IM ONE (12:01)
== END 2021-09-25 13:02 | disposition home or self-care (01) ==
LOC: MW.ED 09:54
DX: S20.212A Contusion of left front wall of thorax, initial encounter (principal); I10 Essential (primary) hypertension; E78.00 Pure hypercholesterolemia, unspecified; Z88.6 Allergy status to analgesic agent; Z88.8 Allergy status to other drugs, medicaments and biological substances; Z79.899 Other long term (current) drug therapy; W07.XXXA Fall from chair, initial encounter
CPT/HCPCS: 36415; 70450; 71046; 80053; 84484; 85025; 93005; 96372; 99284; J1885

== ENCOUNTER 2022-08-15 11:14 | Emergency (ER) | payer MEDICARE, OTHER ==
[2022-08-15] MEDS ORDERED: Nitroglycerin 0.4 MG Tab.SL SL ONE ×2 (11:43→12:44)
[2022-08-15] MEDS ORDERED: Aspirin 81 MG Tab.Chew PO ONE (11:45)
[2022-08-15 12:28] LABS: CARBON DIOXIDE,CO2 26.2 mmol/L (21.0-32.0); POTASSIUM,K 3.9 mmol/L (3.5-5.1)
[2022-08-15] MEDS ORDERED: Clopidogrel 75 MG Tab PO ONE (13:05)
[2022-08-15] MEDS ORDERED: Heparin Sodium 5,000 Units/ML Vial IV ONE (13:15)
[2022-08-15] MEDS ORDERED: Heparin Sodium/0.45% NaCl 500 ML IV SCH (13:15)
== END 2022-08-15 13:41 ==
LOC: MW.ED 11:14
DX: I21.4 Non-ST elevation (NSTEMI) myocardial infarction (principal); E78.00 Pure hypercholesterolemia, unspecified; I10 Essential (primary) hypertension; Z79.899 Other long term (current) drug therapy; Z86.16 Personal history of COVID-19; Z90.710 Acquired absence of both cervix and uterus; Z20.822 Contact with and (suspected) exposure to COVID-19
CPT/HCPCS: 36415; 71045; 80053; 83690; 84484; 85025; 85730; 93005; 96365; 96376; 99285; A9270; J1644; U0002

== ENCOUNTER 2024-08-30 08:56 | Day surgery (SDC) | payer MEDICARE, OTHER ==
[~2024-08-30 08:56] MED LIST changes: -Lactated Ringers 1,000 ML IV SCH
[2024-08-30] MEDS ORDERED: Lidocaine 2% 5 ML SDV ONE (09:52)
[2024-08-30] MEDS ORDERED: propofoL 500 MG/50 ML 50 ML ONE (09:52)
[2024-08-30] MEDS: Lactated Ringers 1,000 ML IV SCH (10:29)
== END 2024-08-30 12:07 | disposition home or self-care (01) ==
LOC: MW.SDS 08:56
PROVIDERS: ATTEND Surgery
DX: Z12.11 Encounter for screening for malignant neoplasm of colon (principal); K57.30 Diverticulosis of large intestine without perforation or abscess without bleeding; N81.6 Rectocele; Z85.038 Personal history of other malignant neoplasm of large intestine; Z86.0100 Personal history of colon polyps, unspecified; I10 Essential (primary) hypertension; E78.5 Hyperlipidemia, unspecified; Z79.899 Other long term (current) drug therapy; Z88.8 Allergy status to other drugs, medicaments and biological substances
CPT/HCPCS: G0105; J2704; J7120; J3490

== ENCOUNTER 2024-10-19 20:31 | Observation (INO) | payer MEDICARE, OTHER ==
[2024-10-19 21:21] LABS: BASOPHILS ABSOLUTE AUTO 0.04 K/uL (0.00-0.20); BASOPHILS PERCENT AUTO 0.3 % (0.0-1.0); EOSINOPHILS ABSOLUTE AUTO 0.08 K/uL (0.00-0.45); EOSINOPHILS PERCENT AUTO 0.5 % (0.0-6.0); HEMATOCRIT 41.2 % (37.0-47.0); HEMOGLOBIN 13.8 g/dL (12.0-16.0); IMMATURE GRAN ABSOLUTE AUTO 0.09 K/uL (0.00-0.05); IMMATURE GRAN PERCENT AUTO 0.6 % (0.0-0.4); LYMPHOCYTES ABSOLUTE AUTO 1.54 K/uL (1.00-4.80); LYMPHOCYTES PERCENT AUTO 10.3 % (24.0-44.0); MEAN CORPUSCULAR HEMOGLOBIN 29.7 pg (28.0-32.0); MEAN CORPUSCULAR HGB CONC 33.5 g/dL (32.0-36.0); MEAN CORPUSCULAR VOLUME 88.8 fL (83.0-99.0); MEAN PLATELET VOLUME 9.8 fL (9.4-12.3); MONOCYTES PERCENT AUTO 7.3 % (0.0-8.0); NEUTROPHILS ABSOLUTE AUTO 12.16 K/uL (1.80-7.70); PLATELET COUNT,PLT 242 K/uL (150-400); RED BLOOD CELL COUNT 4.64 M/uL (4.10-5.30); WHITE BLOOD CELL COUNT,WBC 15.01 K/uL (3.9-11.3)
[2024-10-19 21:47] LABS: A/G RATIO 0.8 (0.9-1.6); ALBUMIN 3.2 g/dL (3.4-5.0); BILIRUBIN TOTAL 0.7 mg/dL (0.2-1.0); CARBON DIOXIDE,CO2 27.2 mmol/L (21.0-32.0); EST CRCL DRUG DOSING (CG) 36.11 mL/min
[2024-10-19] MEDS: Iopamidol 755 MG/ML 500 ML Multipack Bottle IVPUSH ONE (22:08)
[2024-10-19] MEDS ORDERED: Lidocaine 4% 1 each Patch TOP PRN (22:59)
[2024-10-19 23:54] LABS: BILIRUBIN,URINE NEGATIVE (NEGATIVE); COLOR,URINE YELLOW; GLUCOSE,URINE NEGATIVE (NEGATIVE); KETONES,URINE NEGATIVE (NEGATIVE); LEUKOCYTE ESTERASE,URINE TRACE (NEGATIVE); NITRITE,URINE NEGATIVE (NEGATIVE); OCCULT BLOOD,URINE TRACE-INTACT (NEGATIVE); PH,URINE 5.5 (5.0-8.0); PROTEIN,URINE NEGATIVE (NEGATIVE); UROBILINOGEN,URINE 0.2 EU/dL (<2.0)
[2024-10-19 23:55] LABS: APPEARANCE,URINE HAZY
[2024-10-20 00:05] LABS: WBC,URINE 0-3 (0-5/HPF)
[2024-10-20 00:06] LABS: BACTERIA,URINE RARE (NEGATIVE); EPITHELIAL CELLS,URINE FEW (NONE-FEW)
[2024-10-20] MEDS: oxyCODONE 5 MG Tab PO ONE (00:15)
[2024-10-20] MEDS ORDERED: Acetaminophen 325 MG Tab PO PRN (02:31)
[2024-10-20] MEDS: Morphine 2 MG/ML SYRINGE IVPUSH PRN (02:36)
[2024-10-20] MEDS: oxyCODONE 5 MG Tab PO PRN (06:13)
[2024-10-20 06:40] LABS: BASOPHILS ABSOLUTE AUTO 0.03 K/uL (0.00-0.20); BASOPHILS PERCENT AUTO 0.3 % (0.0-1.0); EOSINOPHILS ABSOLUTE AUTO 0.05 K/uL (0.00-0.45); EOSINOPHILS PERCENT AUTO 0.5 % (0.0-6.0); HEMATOCRIT 37.9 % (37.0-47.0); HEMOGLOBIN 12.8 g/dL (12.0-16.0); IMMATURE GRAN ABSOLUTE AUTO 0.02 K/uL (0.00-0.05); IMMATURE GRAN PERCENT AUTO 0.2 % (0.0-0.4); LYMPHOCYTES PERCENT AUTO 15.9 % (24.0-44.0); MEAN CORPUSCULAR HEMOGLOBIN 29.8 pg (28.0-32.0); MEAN CORPUSCULAR HGB CONC 33.8 g/dL (32.0-36.0); MEAN CORPUSCULAR VOLUME 88.1 fL (83.0-99.0); MEAN PLATELET VOLUME 10.4 fL (9.4-12.3); MONOCYTES ABSOLUTE AUTO 0.98 K/uL (0.00-0.80); MONOCYTES PERCENT AUTO 9.2 % (0.0-8.0); NEUTROPHILS ABSOLUTE AUTO 7.89 K/uL (1.80-7.70); NEUTROPHILS PERCENT AUTO 73.9 % (41.0-71.0); PLATELET COUNT,PLT 255 K/uL (150-400); WHITE BLOOD CELL COUNT,WBC 10.67 K/uL (3.9-11.3)
[2024-10-20 07:02] LABS: CALCIUM 8.8 mg/dL (8.5-10.1); CARBON DIOXIDE,CO2 28.6 mmol/L (21.0-32.0); EST CRCL DRUG DOSING (CG) 36.11 mL/min; POTASSIUM,K 3.9 mmol/L (3.5-5.1)
[2024-10-20] MEDS: Acetaminophen 325 MG Tab PO SCH ×2 (10:58→20:24)
[2024-10-20] MEDS: Hydrochlorothiazide/Losartan 12.5-50 mg Tab PO SCH (16:07)
[2024-10-20] MEDS: Carvedilol 3.125 MG Tab PO SCH (16:08)
[2024-10-20] MEDS: Aspirin 81 MG Tab.EC PO SCH (16:09)
[2024-10-20] MEDS: CYCLOSPORINE EYEBOTH SCH (16:13)
[2024-10-20] MEDS: Hydroxychloroquine 200 MG Tablet PO SCH (16:13)
[2024-10-20] MEDS: Ondansetron 4 MG/2 ML SDV IVPUSH PRN (18:39)
[2024-10-20] MEDS: atorvaSTATin 40 MG Tab PO SCH (20:26)
[2024-10-21] MEDS: Sodium Chloride 0.9% 1,000 ML IV STA (08:36)
== END 2024-10-21 15:45 | disposition home or self-care (01) ==
LOC: MW.ED 20:31 → MW.MS 10-20 01:18
PROVIDERS: ADMIT Family Medicine; ATTEND Family Medicine
DX: S32.000A Wedge compression fracture of unspecified lumbar vertebra, initial encounter for closed fracture (principal); I10 Essential (primary) hypertension; E78.00 Pure hypercholesterolemia, unspecified; X58.XXXA Exposure to other specified factors, initial encounter
CPT/HCPCS: 36415; 72128; 72131; 74177; 80048; 80053; 81001; 83690; 85025; 87086; 96374; 97110; 97116; 97161; 99285; A9270; J2270; J3360; J7030; Q9967; 96376; 99284; G0378; J2405